=== PATIENT | female | born 1975 | race Caucasian/White ===

== ENCOUNTER 2016-09-02 12:11 | Inpatient (IN) | payer OTHER ==
[~2016-09-02] VITALS: Ht 152.4 cm; Wt 77.1 kg
[~2016-09-02 12:11] MED LIST: AUGMENTIN 875 M1 TAB PO; BIAXIN500 MG PO; NAPROSYN375 MG PO; PERCOCET 325 MG1 TA2 PO; PREDNISONE10 MG PO; PROAIR HFA0.09 MG/Ac INH; ROBITUSSIN W/CO10 ML PO; TAMIFLU 75MG75 MG PO; VICODIN5-300 PO
--- NOTE | 2016-09-02 12:18 | NUR ---
41 Y/O FEMALE C/O VOMITING SINCE LAST WEEK AND NOW EPIGASTRIC, RUQ AND BACK PAIN. DOCTOR TOLD HER IT COULD BE HER GALLBLADDER OR APPENDIX. ALSO HAD NEW INJECTION IN BACK (FOR PAIN) AND HASN'T BEEN FEELING WELL SINCE.
--- NOTE | 2016-09-02 12:28 | ED GI/GU/ABDOMINAL COMPLAINT ---
History of Present Illness General Chief Complaint: Nausea, Vomiting, Diarrhea Stated Complaint: BACK PAIN VOMITING Source: patient, family, old records Exam Limitations: no limitations Vital Signs & Intake/Output Vital Signs & Intake/Output Vital Signs Date Time Temp Pulse Resp B/P Pulse O2 O2 Flow FiO2 Ox Delivery Rate 09/02 1432 98.2 91 18 119/65 99 09/02 1215 95.8 132 18 118/89 99 Allergies Coded Allergies: NO KNOWN ALLERGIES (01/30/13) Reconcile Medications Alprazolam 0.5 MG TABLET 1 TAB PO BIDP PRN ANXIETY (Reported) Losartan Potassium 50 MG TABLET 1 TAB PO DAILY HEART (Reported) Oxycodone HCl 10 MG TABLET 1 TAB PO TIDPRN PRN PAIN (Reported) Triage Note: 41 Y/O FEMALE C/O VOMITING SINCE LAST WEEK AND NOW EPIGASTRIC, RUQ AND BACK PAIN. DOCTOR TOLD HER IT COULD BE HER GALLBLADDER OR APPENDIX. ALSO HAD NEW INJECTION IN BACK (FOR PAIN) AND HASN'T BEEN FEELING WELL SINCE. Triage Nurses Notes Reviewed? yes LMP (ages 10-50): unknown ? n Is pt currently ? No Onset: Last week Duration: week(s):, constant, continues in ED, getting worse Timing: recent history Quality/Severity: aching, sharpness, severe, vomiting Location: right lower quadrant, right upper quadrant Radiation: back Activities at Onset: none Prior Abdominal Problems: none Past Sexual History: Unobtainable at this time Modifying Factors: Worsens With: movement, palpation. Associated Symptoms: abdominal pain, diarrhea, loss of appetite, lower back pain , nausea/vomiting HPI: Patient suffers from low back pain and had steroid injections 5 days ago. 1-2 weeks prior to admission patient complains of right-sided abdominal pain described as waxing and waning severe radiating to her back associated with nausea vomiting frequent loose watery stools not improved with Percocet or Zofran. She denies fever chills chest pain cough shortness of breath headache dysuria rash bleeding. Past History Travel History Traveled to [place] past 21 day No Medical History Any Pertinent Medical History? 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 No Review of Systems Review of Systems Constitutional: Reports: see HPI, weakness. EENTM: Reports: no symptoms. Respiratory: Reports: no symptoms. Cardiovascular: Reports: no symptoms. GI: Reports: see HPI, abdominal pain, bloating, diarrhea, nausea, vomiting. Genitourinary: Reports: no symptoms. Musculoskeletal: Reports: see HPI, back pain. Skin: Reports: no symptoms. Neurological/Psychological: Reports: no symptoms. Hematologic/Endocrine: Reports: no symptoms. Immunologic/Allergic: Reports: no symptoms. All Other Systems: Reviewed and Negative Physical Exam Physical Exam General Appearance: well developed/nourished, alert, awake, anxious, severe distress Head: atraumatic, normal appearance Eyes: Bilateral: normal appearance, PERRL, EOMI, normal inspection. Ears, Nose, Throat, Mouth: hearing grossly normal, Dry mucous membranes Neck: normal inspection, supple, full range of motion, normal alignment Respiratory: normal breath sounds, chest non-tender, no respiratory distress, quiet respiration, lungs clear Cardiovascular: regular rate/rhythm, normal peripheral pulses, norml femoral pulses equa Peripheral Pulses: 4+ carotid (R), 4+ carotid (L) Gastrointestinal: abnormal bowel sounds, distention, guarding, rebound, tenderness Back: normal inspection, normal range of motion Extremities: normal range of motion, no ligament instability Neurologic/Psych: no motor/sensory deficits, awake, alert, oriented x 3, normal gait, normal mood/affect, 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 No Severe Sepsis Present: No Septic Shock Present: No Progress Differential Diagnosis: biliary colic, cholecystitis, gastritis, pancreatitis Plan of Care: Orders Procedure Date/time Status Nothing by Mouth 09/02 D Active Patient Data 09/02 1448 Active OXYGEN SETUP (GEN) 09/02 1446 Active Saline Lock 09/02 1446 Active Admit to inpatient 09/02 1446 Active Vital Signs 09/02 1446 Active Activity/Ambulation 09/02 1446 Active Code Status 09/02 1446 Active Intake & Output 09/02 1313 Active LIPASE 09/02 1227 Complete HUMAN BETA HCG SCREEN 09/02 1227 Complete COMPREHENSIVE METABOLIC PANEL 09/02 1227 Complete CBC WITHOUT DIFFERENTIAL 09/02 1227 Complete Laboratory Tests 09/02/16 1310: Anion Gap 13, Estimated GFR > 60, BUN/Creatinine Ratio 23.3, Glucose 100 H, Calcium 10.1, Total Bilirubin 0.8, AST 50 H, ALT 78 H, Alkaline Phosphatase 129 H, Total Protein 7.7, Albumin 4.7, Globulin 3.0, Albumin/Globulin Ratio 1.6 , Lipase 79, Total Beta HCG NEGATIVE, CBC w Diff NO MAN DIFF REQ, RBC 4.96, MCV 92.6, MCH 31.0, RDW 13.2, MPV 7.0 L, Gran % 85.9 H, Lymphocytes % 9.4 L, Monocytes % 4.5, Eosinophils % 0.2, Basophils % 0 L, Absolute Granulocytes 8.4 H, Absolute Lymphocytes 0.9 L, Absolute Monocytes 0.4, Absolute Eosinophils 0, Absolute Basophils 0, PUBS MCHC 33.4 Diagnostic Imaging: Viewed by Me: CT Scan. Discussed w/RAD: CT Scan. Radiology Impression: Multiple fluid-filled loops of small and large bowel throughout the abdomen with minimal mucosal hyperemia. No significant circumferential mucosal thickening. This finding is nonspecific but could reflect an infectious or inflammatory enterocolitis given patient symptomatology. Nonvisualization of the appendix. No acute inflammatory changes within the right lower quadrant of the abdomen. Initial ED EKG: none Departure Departure Time of Disposition: 1517 Disposition: STILL A PATIENT Condition: Stable Clinical Impression Primary Impression: Enterocolitis Referrals: SORAYA VERAS MD (PCP/Family) Departure Forms: Customer Survey General Discharge Information Admission Note Spoke With: KAREN VEGA,FRANCISCO JAVIER Documentation of Exam: Documentation of any treatments & extenuating circumstances including Concerns Regarding Discharge (functional status, medication knowledge or non-compliance, living conditions, etc.) that warrant an admission rather than observation: Nothing by mouth IV fluids IV antiemetic IV analgesia serial lab exam medication adjustment GI evaluation continuing care discharge planning.
[2016-09-02] MEDS ORDERED: ALPRAZOLAM0.5 M4 PO (12:42)
[2016-09-02] MEDS ORDERED: OXYCODONE HCL10 M2 PO (12:42)
[2016-09-02] MEDS ORDERED: LOSARTAN POTASS50 M1 PO (12:42)
--- NOTE | 2016-09-02 13:09 | NUR ---
EVALUATED BY DR. MOORE, VOMITING CLEAR EMESIS. IV STARTED, LABS DRAWN AND SENT (1 SST, 1 YORK, 1 PURPLE).
--- NOTE | 2016-09-02 13:14 | NUR ---
MEDICATED FOR PAIN AND NAUSEA.
[2016-09-02 13:19] LABS: ABSOLUTE BASOPHIL COUNT 0 /CUMM (0.0-0.2); ABSOLUTE EOSINOPHIL COUNT 0 /CUMM (0.0-0.7); ABSOLUTE GRANULOCYTE CT 8.4 /CUMM (1.4-6.5); ABSOLUTE LYMPH COUNT 0.9 /CUMM (1.2-3.4); ABSOLUTE MONOCYTE COUNT 0.4 /CUMM (0.10-0.60); BASOPHIL % 0 % (0.0-2.0); EOSINOPHIL % 0.2 % (0-5); HEMATOCRIT 45.9 % (37-47); MEAN CORPUSCULAR HGB CONC 33.4 G/DL (33.0-37.0); MEAN CORPUSCULAR VOLUME 92.6 FL (81.0-99.0); PLATELET COUNT 322 /CUMM (130-400); RBC DISTRIBUTION WIDTH 13.2 % (11.5-14.5); RED BLOOD CELL CT 4.96 /CUMM (4.20-5.40); WHITE BLOOD CELL COUNT 9.8 /CUMM (4.8-10.8)
[2016-09-02 13:44] LABS: GRANULOCYTE % 85.9 % (42.2-75.2)
--- NOTE | 2016-09-02 13:56 | NUR ---
C/O RUQ ABDOMINAL PAIN 04/06. MEDICATED FOR PAIN WITH DILAUDID [address] SCAN.
--- NOTE | 2016-09-02 14:10 | NUR ---
RETURNED FROM CT SCAN.
--- NOTE | 2016-09-02 14:32 | CT SCAN REPORT ---
EXAMINATION: CT ABDOMEN AND PELVIS WITH CONTRAST CLINICAL INFORMATION: Right-sided abdominal pain. Nausea, vomiting and guarding. Positive rebound tenderness. COMPARISON: CT abdomen and pelvis without contrast 04/09/2012. Abdominal ultrasound 01/30/2013. TECHNIQUE: Multidetector volumetric imaging was performed of the abdomen and pelvis before and after the IV administration of 95 mL of Optiray 320 intravenous contrast. Sagittal and coronal reformatted images were obtained on the technologist's workstation. DLP: 436 mGy-cm FINDINGS: LUNG BASES: Minimal lingular atelectasis. The visualized lung bases are otherwise unremarkable. LIVER, GALLBLADDER, AND BILIARY TREE: The liver is normal in size, shape, and attenuation. No focal hepatic lesion or biliary ductal dilatation is present. The gallbladder is unremarkable without evidence of radiopaque gallstones, gallbladder wall thickening, or obvious pericholecystic inflammatory changes. PANCREAS: Unremarkable. SPLEEN: Unremarkable. ADRENAL GLANDS: Unremarkable. KIDNEYS AND URETERS: The kidneys are normal in size and enhance homogeneously, without focal lesions. There is no appreciable nephrolithiasis or hydroureteronephrosis of either kidney or renal collecting system. No ureteral stones are identified. BLADDER: Unremarkable. GASTROINTESTINAL TRACT: Normal anatomic orientation of the stomach relative to the duodenum. Normal caliber of abdominal and pelvic bowel loops, without evidence of obstruction or ileus. Multiple fluid-filled loops of small bowel throughout the abdomen with fluid also identified within the right hemicolon. There is also minimal mucosal hyperemia of loops of small and large bowel, without significant circumferential mucosal thickening. This finding is nonspecific but could reflect an infectious or inflammatory enterocolitis. Nonvisualization of the appendix. No acute inflammatory changes within the right lower quadrant of the abdomen. No organizing intra-abdominal fluid collections or free intraperitoneal air. ABDOMINAL WALL: No significant hernia is appreciated. LYMPH NODES: No significant abdominal or pelvic adenopathy. VASCULAR: Patent abdominal vasculature. Normal course and caliber of the abdominal aorta and its branching vessels, without aneurysmal dilatation. PELVIC VISCERA: An intrauterine device is present within the endometrial cavity. OSSEOUS STRUCTURES: No acute osseous abnormality. Mild multilevel degenerative changes of the imaged lower thoracic spine, notably at T11-T12. No destructive osseous lesions. No acute vertebral compression deformities of the imaged thoracolumbar spine. IMPRESSION: Multiple fluid-filled loops of small and large bowel throughout the abdomen with minimal mucosal hyperemia. No significant circumferential mucosal thickening. This finding is nonspecific but could reflect an infectious or inflammatory enterocolitis given patient symptomatology. Nonvisualization of the appendix. No acute inflammatory changes within the right lower quadrant of the abdomen.
--- NOTE | 2016-09-02 16:24 | History & Physical ---
CARA VEGA,ANAMIKA 09/02/16 1624: General Information and HPI MD Statement: I have seen and personally examined TIMOTHY MATIAS and documented this H&P. The patient is a 41 year old F who presented with a patient stated chief complaint of [nausea, vomiting, diarrhea]. Source of Information: patient, EMS Exam Limitations: no limitations History of Present Illness: Patient is a 41 YO F with PMH significant for hypertension (recently diagnosed), endometriosis, fibroids, ovarian cysts, herniated disc, sinusitis (on Augmentin recently), right-sided colonic inflammation of unclear etiology, underwent colonoscopy with biopsy in the past ([address] Slater senior agricultural assistant Farida), anxiety, osteoarthritis, carpal tunnel syndrome. She came to the emergency room today with nausea, vomiting, diarrhea and abdominal pain for the past 2 weeks. Her symptoms appear to be progressively worsened, conditions of the lumbosacral, Bile Nonbloody. Stool consistency is greenish yellow without any blood. Last week she had a fever of 101. She recently reports receiving injections on her back, for herniated disc after which apparently her symptoms got worse. She also noticed abdominal distention, went to her PCP who sent her to ER saying that she could have it the gallbladder/appendicular disease. She reports similar episode in the past 4 years ago, found to have right surgical inflammation during the laparoscopic procedure for her endometriosis. Subsequently underwent colonoscopy with biopsy, reports it is secondary to inflammation/irritation but never followed up. She also reports ulcer disease in college, remained asymptomatic for several years. It appears never tested for H. pylori in the past. Physicians - PCP - Dr. balta Stevens, [place], GI Dr. Bryon Iqbal, gynecology Dr. Vasquez Osteoarthritis - Dr. Hernandez. Allergies/Medications Allergies: Coded Allergies: NO KNOWN ALLERGIES (01/30/13) Compliance With Home Meds: GOOD Past History Travel History Traveled to [place] past 21 day No Medical History Neurological: NONE EENT: NONE Cardiovascular: hypertension Respiratory: asthma Gastrointestinal: GERD, right colon inflammation - nonspecific Hepatic: NONE Renal: NONE Musculoskeletal: disk herniation Psychiatric: NONE Endocrine: NONE Blood Disorders: NONE Cancer(s): NONE MRI TECHNOLOGIST/Reproductive: endometriosis, fibroids, ovarian cysts Surgical History Surgical History: 2 C-sections Past Family/Social History Family History Relations & Conditions if any grand father\, . FH: colon cancer FATHER FH: heart disease MOTHER FH: diabetes mellitus FH: heart disease, Onset: Unknown. Relation not specified for: FH: breast cancer Psychosocial History Past Psychosocial History Unobtainable at this time Where do you live? Home Who Do You Live With? parent Services at Home: None Smoking Status: Never Smoked ETOH Use: denies use Illicit Drug Use: denies illicit drug use Sexual History Past Sexual History Unobtainable at this time Review of Systems Review of Systems Constitutional: Reports: see HPI. EENTM: Reports: see HPI. Comments ROS negative except the above. Exam & Diagnostic Data Last 24 Hrs of Vital Signs/I&O Vital Signs Date Time Temp Pulse Resp B/P Pulse O2 O2 Flow FiO2 Ox Delivery Rate 09/02 1432 98.2 91 18 119/65 99 09/02 1215 95.8 132 18 118/89 99 Intake & Output 09/02 1600 09/02 0800 09/02 0000 Intake Total 1000 Output Total Balance 1000 Intake, IV 1000 Patient 77.111 kg Weight Physical Exam General Appearance Alert, Oriented X3, Cooperative Skin No Rashes, No Breakdown HEENT Atraumatic, PERRLA Neck Supple, No JVD Cardiovascular Normal S1, Normal S2, No Murmurs Lungs Clear to Auscultation, Normal Air Movement Abdomen No Masses, epigastric tenderness - specifically, mild overall tenderness., CVA tenderness left side. Neurological Normal Speech, Strength at 5/5 X4 Ext, Normal Tone, Sensation Intact Extremities No Clubbing, No Cyanosis, No Edema Vascular Normal Pulses, Pulses Symmetrical Body Front and Back (Adult) 1) abdominal pain 2) back pain Last 24 Hrs of Labs/[place]: Laboratory Tests 09/02/16 1310: Anion Gap 13, Estimated GFR > 60, BUN/Creatinine Ratio 23.3, Glucose 100 H, Calcium 10.1, Total Bilirubin 0.8, AST 50 H, ALT 78 H, Alkaline Phosphatase 129 H, Total Protein 7.7, Albumin 4.7, Globulin 3.0, Albumin/Globulin Ratio 1.6 , Lipase 79, Total Beta HCG NEGATIVE, CBC w Diff NO MAN DIFF REQ, RBC 4.96, MCV 92.6, MCH 31.0, RDW 13.2, MPV 7.0 L, Gran % 85.9 H, Lymphocytes % 9.4 L, Monocytes % 4.5, Eosinophils % 0.2, Basophils % 0 L, Absolute Granulocytes 8.4 H, Absolute Lymphocytes 0.9 L, Absolute Monocytes 0.4, Absolute Eosinophils 0, Absolute Basophils 0, PUBS MCHC 33.4 Microbiology 09/02 1704 STOOL: Cryptosporidium Antigen - COLB 09/02 1704 STOOL: Giardia Antigen ([place]) - COLB 09/02 1704 STOOL: Vibrio Culture - COLB 09/02 1704 STOOL: Yersinia Culture - COLB 09/02 1557 STOOL: Clostridium difficile Toxin A & B - COLB Assessment/Plan Assessment: Patient is a 41 YO F came to the emergency room today with nausea, vomiting, diarrhea and abdominal pain for the past 2 weeks. Her symptoms appear to be progressively worsened, contents of vomitus, Bile Nonbloody & diarrhea is greenish yellow without any blood in it. She had similar episode 4yr ago. ER course vs Afebrile, HR 132, RR 18, on room air Significant labs AST/ALT - 50/98, ALP 129 CT abdomen and pelvis IMPRESSION: Multiple fluid-filled loops of small and large bowel throughout the abdomen with minimal mucosal hyperemia. No significant circumferential mucosal thickening. This finding is nonspecific but could reflect an infectious or inflammatory enterocolitis given patient symptomatology. Plan Admitted to general medicine floor enterocolitis Possible etiologies: * Infectious vs inflammatory - major diffrential * Similar episode in the past so IBD should be considered as a first differental * Norovirus/Rotavirus are considered majorly although other culprits include astrovirus, coronavirus are other culprits * Recently patient took augmentin for sinusitis - Pencillin induced segmental hemorrhagic colitis is a rare consideration as a differential (right colon effected) * common bacteria involved - salmonella, shigella, campylobacter, yersinia Management * IV fluids with IV morphine for pain * NPO for now - bowel rest * Stool cultures - ova, parasites, bacteria, white cells * ESR & CRP to rule out systemic inflammatory reactants * Records from previous GI doctor () regarding colonoscopy and biopsy * GI consult in am * reevaluate tomorrow for advancing diet depending on clinical conditon Low back Pain * Recently received IV injections locally (possibly steroids) * Oxycodone for now, taking percocet at home Hypertension * Recently diagnosed * will continue her home medications losartan 50mg Anxiety * her home medication Xanax is continued DVT Prophylaxis * SC lovenox Code Status * Full Code As Ranked By This Provider Problem List: 1. Enterocolitis 2. Sinusitis Core Measures/Miscellaneous Acute Coronary Syndrome ACS Diagnosis: No Cerebrovascular Accident CVA/TIA Diagnosis: No Congestive Heart Failure CHF Diagnosis: No Venous Thromboembolism VTE Risk Factors: Immobility, paresis No Mech VTE prophylaxis d/t: No contraindications No VTE Pharm Prophylaxis d/t: No contraindications VTE Diagnosis: No VTE Type: NONE VTE Confirmed by (Test): NONE Severe Sepsis Severe Sepsis Present: No Septic Shock Septic Shock Present: No Miscellaneous Documentation Attending Case Discussed With: IZA VEGA,KATIE Primary Care Physician: LATASHA VERAS MD Patient sees these Specialists Level of Patient Care: General Medicine KAREN VEGA,[facility] 09/02/16 1645: Attending MD Review Statement Attending Statement Attending MD Statement: examined this patient, discuss w/resident/PA/SPEECH AND LANGUAGE CLINICIAN, agreed w/resident/PA/SPEECH AND LANGUAGE CLINICIAN, discussed with family, reviewed EMR data (avail), discussed with nursing Attending Assessment/Plan: Patient seen and examined. Plan of care discussed with the medical team and the patient. Available lab work and radiology test reports were reviewed. Patient has been never admitted to this hospital before. In summary this is a 41-year- old female with past history of back pain with recent steroid injection in her back presents with 3 weeks history of nausea vomiting diarrhea and abdominal cramping. She has not been able to keep food or fluids down. She had couple of episodes of mild fever 100.1 at home. No blood in stool or hematemesis. Please see resident note for past medical history, family history social history and home medications. Vital Signs Date Time Temp Pulse Resp B/P Pulse O2 O2 Flow FiO2 Ox Delivery Rate 09/02 1432 98.2 91 18 119/65 99 09/02 1215 95.8 132 18 118/89 99 Intake & Output 09/02 1600 09/02 0800 09/02 0000 Intake Total 1000 Output Total Balance 1000 Intake, IV 1000 Patient 170 lb Weight Exam: General: Patient awake alert oriented with moderate distress due to abdominal pain and nausea CVS: S1 plus S2 without any murmur or gallops Chest: Few scattered crepitation without any wheeze. There is no respiratory distress. Abdomen: Soft and tender diffusely with mild distention, bowel sound present, no guarding or rebound TUBING MILL OPERATOR: Awake alert oriented without any focal neuro deficit and follows command appropriately Extremities: No edema; no clubbing or cyanosis noted tender, bowel sound present , no guarding or rebound TUBING MILL OPERATOR: Awake alert oriented without any focal neuro deficit and follows command appropriately Extremities: No edema; no clubbing or cyanosis noted Laboratory Tests 09/02 1310 Chemistry Sodium (137 - 145 mmol/L) 140 Potassium (3.5 - 5.1 mmol/L) 3.6 Chloride (98 - 107 mmol/L) 98 Carbon Dioxide (22 - 30 mmol/L) 29 Anion Gap (5 - 16) 13 BUN (7 - 17 mg/dL) 14 Creatinine (0.5 - 1.0 mg/dL) 0.6 Estimated GFR (>60 ml/min) > 60 BUN/Creatinine Ratio (7 - 25 %) 23.3 Glucose (65 - 99 mg/dL) 100 H Calcium (8.4 - 10.2 mg/dL) 10.1 Total Bilirubin (0.2 - 1.3 mg/dL) 0.8 AST (14 - 36 U/L) 50 H ALT (9 - 52 U/L) 78 H Alkaline Phosphatase (<127 U/L) 129 H Total Protein (6.3 - 8.2 g/dL) 7.7 Albumin (3.5 - 5.0 g/dL) 4.7 Globulin (1.9 - 4.2 gm/dL) 3.0 Albumin/Globulin Ratio (1.1 - 2.2 %) 1.6 Lipase (23 - 300 U/L) 79 Total Beta HCG (NEGATIVE) NEGATIVE Hematology CBC w Diff NO MAN DIFF REQ WBC (4.8 - 10.8 /CUMM) 9.8 RBC (4.20 - 5.40 /CUMM) 4.96 Hgb (12.0 - 16.0 G/DL) 15.3 Hct (37 - 47 %) 45.9 MCV (81.0 - 99.0 FL) 92.6 MCH (27.0 - 31.0 PG) 31.0 RDW (11.5 - 14.5 %) 13.2 Plt Count (130 - 400 /CUMM) 322 MPV (7.4 - 10.4 FL) 7.0 L Gran % (42.2 - 75.2 %) 85.9 H Lymphocytes % (20.5 - 51.1 %) 9.4 L Monocytes % (1.7 - 9.3 %) 4.5 Eosinophils % (0 - 5 %) 0.2 Basophils % (0.0 - 2.0 %) 0 L Absolute Granulocytes (1.4 - 6.5 /CUMM) 8.4 H Absolute Lymphocytes (1.2 - 3.4 /CUMM) 0.9 L Absolute Monocytes (0.10 - 0.60 /CUMM) 0.4 Absolute Eosinophils (0.0 - 0.7 /CUMM) 0 Absolute Basophils (0.0 - 0.2 /CUMM) 0 PUBS MCHC (33.0 - 37.0 G/DL) 33.4 Microbiology Date/Time Procedure - Status Source Growth 09/02 1557 Clostridium difficile Toxin A & B - COLB STOOL CT abdomen and pelvis Multiple fluid-filled loops of small and large bowel throughout the abdomen with minimal mucosal hyperemia. No significant circumferential mucosal thickening. This finding is nonspecific but could reflect an infectious or inflammatory enterocolitis given patient symptomatology. Nonvisualization of the appendix. No acute inflammatory changes within the right lower quadrant of the abdomen. Assessment * Acute recent right is likely viral * Rule out underlying inflammatory bowel disease- patient apparently had workup done 4 years ago at another hospital. Patient does not remember the biopsy report results. * Dehydration * Persistent nausea and vomiting * Chronic back pain * History of endometriosis Plan * IV fluid * IV morphine for pain management * No antibiotic at this point * Continue alprazolam and losartan per home dose * Obtain old records from prior endoscopies and biopsies * The patient's symptoms do not resolve with conservative measures she may need GI evaluation. STEFANIE VEGA,[facility] 09/02/16 0223: General Information and HPI Allergies/Medications Home Med list Acetaminophen (Tylenol Extra Strength) 500 MG TABLET 1 TAB PO TID MILD PAIN 1- 3 Alprazolam 0.5 MG TABLET 1 TAB PO BIDP PRN ANXIETY (Reported) Famotidine 20 MG TABLET 20 MG PO BID stomach ulcer Losartan Potassium 50 MG TABLET 1 TAB PO DAILY HEART (Reported) Metoclopramide HCl (Reglan) 10 MG TABLET 1 TAB PO TID nausea 30 minutes before meals and bedtime Metronidazole (Flagyl) 250 MG TABLET 500 MG PO Q8 C DIFF Ondansetron (Zofran Odt) 4 MG TAB.RAPDIS 1 TAB SL TID nausea Oxycodone HCl 10 MG TABLET 1 TAB PO TIDPRN PRN PAIN (Reported) Oxycodone HCl 5 MG TABLET 1 TAB PO Q6P PRN PAIN 7-10 Resident Review Statement Resident Statement: examined this patient, discussed with credit intern, agreed with credit intern, discussed with family, reviewed EMR data (avail), discussed with nursing Other Findings: 41-year-old old female with past medical history of recently diagnosed hypertension, sinusitis was on Augmentin prior to admission, right-sided colonic inflammation of unclear etiology which was found during colonoscopy done about 4 years ago presents to the ED with complaints of vomiting and diarrhea for the last 2 weeks which has recently worsened over the last 1 week lasting for about 10 episodes of each daily. Patient has been feeling nauseous unable to eat or drink. Has blood in the stools or in the vomitus. Had temperature 2 in the past 2 weeks with a MAXIMUM TEMPERATURE of 101.8 which was on Wednesday. Had similar episode in the past about 4 years ago had a colonoscopy done 4 years ago which showed some evidence of inflammation, but patient not able to remember pathology results. She failed to follow-up after that. Had a recent steroid shots about 8 shots in the back for chronic back pain. Patient reports that her back pain was severe 3-4 days postprocedure for which she was taking Percocets about 1-2 tablets daily. Please refer to H&P for vitals and labs. On examination patient alert awake oriented, in mild to moderate distress HEENT: Mucous dry Cardiovascular S1, S2 regular Respiratory: Bilateral breath sounds equal Abdomen: Diffuse tenderness present all over the belly, pulses present Extremity: No pedal edema Assessment and plan Acute gastroenteritis: Etiology unclear could be secondary to possible inflammatory bowel disease given patient's previous colonoscopy showing some inflammation (results unavailable at this time) versus infectious possible C. difficile colitis (given recent antibiotic use) versus viral again unlikely as this going on for more than 2 weeks. Patient has been afebrile since admission with normal white count. We will send stool cultures, or parasites and C. difficile. Will obtain colonoscopy results done in the past. Will monitor off antibiotics. And continue pain medications with IV morphine and IV fluids. Will consider GI evaluation in a.m. patient has no symptomatic relief. 2. Chronic back pain: Pain management as mentioned above. 3. Hypertension: Blood pressure remained stable. We will restart her blood pressure medications after watching the blood pressure overnight. Next 4. We'll continue her alprazolam 0.5 mg twice a day when necessary for anxiety at home dose. Full code status DVT prophylaxis with Lovenox Regular diet
--- NOTE | 2016-09-02 16:25 | NUR ---
PT REQUESTING TO HAVE PAIN MEDS AND INFORMED THAT WE DONT HAVE ANY ORDERES IN HOUSE STAFF PAIGED FOR CALL BACK AND NO RESPONSE YET
--- NOTE | 2016-09-02 16:44 | Admission Certification ---
Admission Certification Certification Statement - As attending physician, I certify that at the time of - admission, based on clinical presentation, severity of - symptoms, need for further diagnostic testing and - therapeutic interventions, and risk of adverse outcomes - without in-hospital treatment, in my clinical assessment, - this patient requires an acute hospital stay for a minimum - of two nights or longer. I have also considered psychsocial - factors such as support system, advanced age, financial - issues, cognitive issues, and failed out-patient treatments, - past re-admission history, safety of patient, and lack of - compliance as applicable. Specific rationale supporting this admission is: Gastroenteritis and persistent nausea vomiting; inability to eat or drink and diffuse abdominal pain
--- NOTE | 2016-09-02 16:45 | NUR ---
PT MEDICATED ORDERED
--- NOTE | 2016-09-02 19:50 | NUR ---
BED ASSIGNED 210-2 ROOM NEEDS TO BE CLEANED WHEN READY FLOOR WILL CALL FOR REPORT
--- NOTE | 2016-09-02 21:36 | NUR ---
REPORT GIVEN TO EDGARDO HOPSONCOMMERCIAL MANAGEMENT ACCOUNTANT CALLED
[2016-09-02 22:32] VITALS: BP 116/82
--- NOTE | 2016-09-03 00:57 | NUR ---
NURSE NOTE ( LATE ENTRY) PT CAME TO FLOOR AROUND 2200 VIA TRANSPORT FROM ED. REPORT RECEIVED FROM TREASURE. PT IS AAOX3, RA. NAUSEOUS AND IN PAIN. MEDICATED ACCORDINGLY. PT ORIENTED TO ROOM, CALL LORENZO IN REACH, BED LOWEST. IVF @125. EMESIS BASIN GIVEN.
--- NOTE | 2016-09-03 06:47 | PN- Housestaff ---
CARA VEGA,ANAMIKA 09/03/16 0647: Subjective Follow-up For: Enterocolitis Subjective: I saw and examined the patient today morning She is doing much worse in terms of pain, no bowel movement yet. Awaiting for bowel movement for getting stool tests. Still nauseous without any vomiting. No overnight fevers, chills, shortness of breath. Review of Systems Constitutional: Reports: see HPI. Gastrointestinal: Reports: abdominal pain, nausea. Denies: vomiting. Comments: ROS negative except the above. Objective Last 24 Hrs of Vital Signs/I&O Vital Signs Date Time Temp Pulse Resp B/P Pulse O2 O2 Flow FiO2 Ox Delivery Rate 09/02 2232 98.5 71 22 116/82 98 Room Air 09/02 2148 78 14 118/60 09/02 1432 98.2 91 18 119/65 99 09/02 1215 95.8 132 18 118/89 99 Intake & Output 09/03 0800 09/03 0000 09/02 1600 Intake Total 2743 734 2493 Output Total Balance 9078 397 7684 Intake, IV 7067 060 0907 Intake, Oral 0 40 Patient 77.111 kg 77.111 kg Weight Physical Exam General Appearance: Alert, Oriented X3, Cooperative, Mild Distress Skin: No Rashes, No Breakdown HEENT: Atraumatic, PERRLA Neck: Supple Cardiovascular: Regular Rate, Normal S1, Normal S2 Lungs: Clear to Auscultation, Normal Air Movement Abdomen: diffuse tenderness specifically in the umbilical and right lower quadrant Neurological: Normal Tone, Sensation Intact, Cranial Nerves 3-12 NL Extremities: No Clubbing, No Cyanosis, No Edema Vascular: Normal Pulses, Pulses Symmetrical Current Medications: Current Medications Sig/Polina Start time Last Medication Dose Route Stop Time Status Admin Acetaminophen 650 MG Q6P PRN 09/02 171 AC PO Alprazolam 0.5 MG BID PRN 09/02 1715 AC 09/03 PO 09/09 1714 0015 Enoxaparin Sodium 40 MG DAILY 09/02 1704 AC SC Hydromorphone HCl 2 MG ONCE ONE 09/02 1400 DC 09/02 IV 09/02 1401 1355 Hydromorphone HCl 0 .STK-MED ONE 09/02 1355 DC .ROUTE Hydromorphone HCl 0 .STK-MED ONE 09/02 1256 DC .ROUTE Hydromorphone HCl 1 MG ONCE ONE 09/02 1230 DC /08 IV 09/02 1231 1312 Metoclopramide HCl 10 MG ONCE ONE 09/02 2345 DC 09/03 IV 09/02 2346 0015 Metoclopramide HCl 0 .STK-MED ONE 09/02 1322 DC .ROUTE Metoclopramide HCl 10 MG ONCE ONE 09/02 1315 DC / IV 09/02 1316 1330 Morphine Sulfate 0 .STK-MED ONE 09/02 1944 DC .ROUTE Morphine Sulfate 2 MG Q4P PRN 09/02 1715 AC 09/02 IV 2218 Morphine Sulfate 2 MG Q3P PRN 09/02 1645 DC / IV 1644 Morphine Sulfate 0 .STK-MED ONE 09/02 1640 DC .ROUTE Ondansetron HCl 4 MG Q4-6 PRN PRN 09/02 2215 AC 09/02 IV 2212 Ondansetron HCl 0 .STK-MED ONE 09/02 1943 DC .ROUTE Ondansetron HCl 4 MG Q6P PRN 09/02 1645 DC 09/02 IV 1644 Ondansetron HCl 0 .STK-MED ONE 09/02 1640 DC .ROUTE Ondansetron HCl 0 .STK-MED ONE 09/02 1256 DC .ROUTE Ondansetron HCl 4 MG ONCE ONE 09/02 1230 DC 09/02 IV 09/02 1231 1312 Oxycodone HCl 5 MG Q6H PRN 09/02 1715 AC 09/03 PO 0015 Sodium Chloride 1,000 ML .Q8H 09/02 1700 AC 09/03 IV 0016 Sodium Chloride 1,000 ML BOLUS ONE 09/02 1230 DC /08 IV 09/02 1329 1312 Last 24 Hrs of Lab/[place] Results Last 24 Hrs of Labs/Mics: Laboratory Tests 09/03/16 1156: ESR Westergren Pending 09/03/16 0655: Total Bilirubin 0.6, Direct Bilirubin 0.4, AST 26, ALT 48, Alkaline Phosphatase 94, C-Reactive Prot, Quant 2.5 H, C-React Prot High Sens > 15.0 H, Total Protein 6.3, Albumin 3.7, CBC w Diff NO MAN DIFF REQ, RBC 4.20, MCV 94.3, MCH 32.1 H, RDW 13.3, MPV 7.2 L, Gran % 50.5, Lymphocytes % 38.6, Monocytes % 9.8 H, Eosinophils % 0.8, Basophils % 0.3, Absolute Granulocytes 2.0, Absolute Lymphocytes 1.5, Absolute Monocytes 0.4, Absolute Eosinophils 0, Absolute Basophils 0, PUBS MCHC 34.1 09/02/16 1310: Anion Gap 13, Estimated GFR > 60, BUN/Creatinine Ratio 23.3, Glucose 100 H, Calcium 10.1, Total Bilirubin 0.8, AST 50 H, ALT 78 H, Alkaline Phosphatase 129 H, Total Protein 7.7, Albumin 4.7, Globulin 3.0, Albumin/Globulin Ratio 1.6 , Lipase 79, Total Beta HCG NEGATIVE, CBC w Diff NO MAN DIFF REQ, RBC 4.96, MCV 92.6, MCH 31.0, RDW 13.2, MPV 7.0 L, Gran % 85.9 H, Lymphocytes % 9.4 L, Monocytes % 4.5, Eosinophils % 0.2, Basophils % 0 L, Absolute Granulocytes 8.4 H, Absolute Lymphocytes 0.9 L, Absolute Monocytes 0.4, Absolute Eosinophils 0, Absolute Basophils 0, PUBS MCHC 33.4 Microbiology 09/02 170 STOOL: Cryptosporidium Antigen - COLB 09/02 170 STOOL: Giardia Antigen ([place]) - COLB 09/02 170 STOOL: Vibrio Culture - COLB 09/02 170 STOOL: Yersinia Culture - COLB 09/02 1557 STOOL: Clostridium difficile Toxin A & B - COLB Lines/Diet/Fluids Lines: peripheral lines Assessment/Plan Assessment: Patient is a 41 YO F came to the emergency room today with nausea, vomiting, diarrhea and abdominal pain for the past 2 weeks. Her symptoms appear to be progressively worsened, contents of vomitus, Bile Nonbloody & diarrhea is greenish yellow without any blood in it. She had similar episode 4yr ago. ER course vs Afebrile, HR 132, RR 18, on room air Significant labs AST/ALT - 50/98, ALP 129 CT abdomen and pelvis IMPRESSION: Multiple fluid-filled loops of small and large bowel throughout the abdomen with minimal mucosal hyperemia. No significant circumferential mucosal thickening. This finding is nonspecific but could reflect an infectious or inflammatory enterocolitis given patient symptomatology. Plan Admitted to general medicine floor enterocolitis Possible etiologies: * Infectious vs inflammatory & protein related enteropathies - major diffrential * Old records - show her colon is normal * Patient is still symptomatic, other gynecological causes are considered. Management * IV fluids with IV morphine for pain * Dicyclomine 10mg QID with scheduled doses of metoclopromide QID, ondansetrone TID IV for symptomatic relief * Clear liquids for now, NPO from 7AM for colonoscopy * Mag citrate given now with fleet enema twice in the morning. * Stool cultures are not sent as no BM so far - ova, parasites, bacteria, white cells * ESR & CRP are negative for inflammatory condition * GI consulted - proceeding with colonoscopy in am Low back Pain * Recently received IV injections locally (possibly steroids) * Oxycodone for now, taking percocet at home Hypertension * Recently diagnosed * will continue her home medications losartan 50mg Anxiety * her home medication Xanax is continued DVT Prophylaxis * SC lovenox Code Status * Full Code Problem List: 1. Sinusitis 2. Enterocolitis Pain Ratin Pain Location: abdomen Pain Goal: Pain 4 or less Pain Plan: oxycodone IV morphine Tomorrow's Labs & Rationales: cbc to monitor any signs of infection off antibiotics IZA VEGA,[facility] 09/03/16 1429: Attending MD Review Statement Attending Statement Attending MD Statement: examined this patient, discuss w/resident/PA/INTEGRITY ASSESSOR, agreed w/resident/PA/INTEGRITY ASSESSOR, reviewed EMR data (avail), discussed with nursing, discussed with case mgmt, reviewed images, amended to note Attending Assessment/Plan: Patient seen and examined, not doing well. C/O sig abd pain, still feels nauseous and has no appetite. Vital Signs Date Time Temp Pulse Resp B/P Pulse O2 O2 Flow FiO2 Ox Delivery Rate 09/03 1421 98.3 72 18 112/70 98 Room Air 09/03 0719 97.4 73 18 114/74 99 Room Air 09/02 2232 98.5 71 22 116/82 98 Room Air 09/02 2148 78 14 118/60 09/02 1432 98.2 91 18 119/65 99 on exam; aox3, nad. heent; mucous membranes moist. cv; s1,s2, rrr. resp; clear abd; soft, tender generalized, bs+ ext; no edema. Laboratory Tests 09/03 09/03 1156 0655 Chemistry Total Bilirubin (0.2 - 1.3 mg/dL) 0.6 Direct Bilirubin (< 0.4 mg/dL) 0.4 AST (14 - 36 U/L) 26 ALT (9 - 52 U/L) 48 Alkaline Phosphatase (<127 U/L) 94 C-Reactive Prot, Quant (<1.0 mg/dL) 2.5 H C-React Prot High Sens (1.0 - 3.0 mg/L) > 15.0 H Total Protein (6.3 - 8.2 g/dL) 6.3 Albumin (3.5 - 5.0 g/dL) 3.7 Hematology CBC w Diff NO MAN DIFF REQ WBC (4.8 - 10.8 /CUMM) 4.0 L RBC (4.20 - 5.40 /CUMM) 4.20 Hgb (12.0 - 16.0 G/DL) 13.5 Hct (37 - 47 %) 39.6 MCV (81.0 - 99.0 FL) 94.3 MCH (27.0 - 31.0 PG) 32.1 H RDW (11.5 - 14.5 %) 13.3 Plt Count (130 - 400 /CUMM) 266 MPV (7.4 - 10.4 FL) 7.2 L Gran % (42.2 - 75.2 %) 50.5 Lymphocytes % (20.5 - 51.1 %) 38.6 Monocytes % (1.7 - 9.3 %) 9.8 H Eosinophils % (0 - 5 %) 0.8 Basophils % (0.0 - 2.0 %) 0.3 Absolute Granulocytes (1.4 - 6.5 /CUMM) 2.0 Absolute Lymphocytes (1.2 - 3.4 /CUMM) 1.5 Absolute Monocytes (0.10 - 0.60 /CUMM) 0.4 Absolute Eosinophils (0.0 - 0.7 /CUMM) 0 Absolute Basophils (0.0 - 0.2 /CUMM) 0 PUBS MCHC (33.0 - 37.0 G/DL) 34.1 ESR Westergren (0 - 20 MM) 15 A/P; 41 y/o F with pmh sig for hypertension (recently diagnosed), endometriosis, fibroids, ovarian cysts, herniated disc, sinusitis (on Augmentin recently), right-sided colonic inflammation of unclear etiology reported by the patient according to colonoscopy 4 years ago although results of biopsy and not available who is admitted with 2-3 weeks duration of abdominal pain, nausea vomiting and diarrhea. CT abdomen and pelvis findings are consistent with possible inflammatory or infectious enterocolitis. At this point patient is nothing by mouth and getting IV fluids. She does not have a fever or leukocytosis therefore no antibiotics were started. Stool studies have been ordered. GI consult will be obtained. Continue symptomatic management for abdominal pain as well as nausea vomiting. DVT Px; Lovenox. DVT Px; Lovenox.
[2016-09-03 07:19] VITALS: BP 114/74
[2016-09-03 08:14] LABS: ABSOLUTE BASOPHIL COUNT 0 /CUMM (0.0-0.2); ABSOLUTE EOSINOPHIL COUNT 0 /CUMM (0.0-0.7); ABSOLUTE LYMPH COUNT 1.5 /CUMM (1.2-3.4); BASOPHIL % 0.3 % (0.0-2.0); EOSINOPHIL % 0.8 % (0-5)
[2016-09-03 08:52] LABS: ABSOLUTE MONOCYTE COUNT 0.4 /CUMM (0.10-0.60); GRANULOCYTE % 50.5 % (42.2-75.2); MEAN CORPUSCULAR HGB 32.1 PG (27.0-31.0); MEAN CORPUSCULAR HGB CONC 34.1 G/DL (33.0-37.0); MEAN CORPUSCULAR VOLUME 94.3 FL (81.0-99.0); MEAN PLATELET VOLUME 7.2 FL (7.4-10.4); PLATELET COUNT 266 /CUMM (130-400); RBC DISTRIBUTION WIDTH 13.3 % (11.5-14.5)
[2016-09-03 08:58] LABS: HEMATOCRIT 39.6 % (37-47)
[2016-09-03 14:21] VITALS: BP 112/70
--- NOTE | 2016-09-03 15:42 | Cons- Gastroenterology ---
General Information and HPI Consulting Request Date of Consult: 09/03/16 (MD RUEL/GASTROENTEROLOGY) Requested By: KATIE COUCH MD Reason for Consult: Diarrhea, abdominal pain, nausea Source of Information: patient History of Present Illness: 41-year-old female with lifelong "diarrhea" which she describes as inability to have a bowel movement for several days, followed by a single loose/watery movement. She has no history of GI bleeding. In addition, she was diagnosed with ulcers (details unknown) when she was in college. After the of her second child approximately 5 years ago, she was being evaluated for endometriosis. During a laparoscopy, apparently she was found to have an abnormal bowel, validated by a general surgeon, and was told to see a referral manager for colonoscopy. Apparently the colonoscopy was unrevealing, but again she cannot recall. She has had "diarrhea" is described above since that time. She has occasional abdominal pain. She believes that she has been ignoring her symptoms and has not followed up with gastroenterology because the complexities of her son's medical issues. The patient denies anemia, liver disease. 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 In addition she has had multiple loose bowel movements per day, nonbloody, as well as abdominal pain (generalized, diffuse). She took some Imodium, and has not had a bowel movement since admission. She believes she had a low-grade fever. There was no antecedent travel, raw food ingestion, pet exposure; her son developed a self-limited GI illness in the midst of her course. Family history is positive for IBD in 2 aunts (mother's sisters in [place]). Her mother also has GI issues. Her son sees a pediatric referral manager. No GI malignancy. Social history: No tobacco, no alcohol abuse, no drug use. Allergies/Medications Allergies: Coded Allergies: NO KNOWN ALLERGIES (01/30/13) Home Med List: Alprazolam 0.5 MG TABLET 1 TAB PO BIDP PRN ANXIETY (Reported) Losartan Potassium 50 MG TABLET 1 TAB PO DAILY HEART (Reported) Oxycodone HCl 10 MG TABLET 1 TAB PO TIDPRN PRN PAIN (Reported) Current Medications: Current Medications Sig/Polina Start time Last Medication Dose Route Stop Time Status Admin Acetaminophen 650 MG Q6P PRN 09/02 1715 AC PO Alprazolam 0.5 MG BID PRN 09/02 1715 AC 09/03 PO 09/09 1714 0015 Enoxaparin Sodium 40 MG DAILY 09/02 1704 AC 09/03 SC 0856 Metoclopramide HCl 10 MG Q6P PRN 09/03 0845 AC 09/03 IV 1448 Metoclopramide HCl 10 MG .STK-MED ONE 09/03 0009 DC IM 09/03 0010 Metoclopramide HCl 10 MG ONCE ONE 09/02 2345 DC 09/03 IV 09/02 2346 0015 Morphine Sulfate 2 MG Q3P PRN 09/03 1015 AC 09/03 IV 1405 Morphine Sulfate 2 MG ONCE ONE 09/03 1000 DC 09/03 IV 09/03 1001 1012 Morphine Sulfate 0 .STK-MED ONE 09/02 1944 DC .ROUTE Morphine Sulfate 2 MG Q4P PRN 09/02 1715 DC 09/03 IV 0706 Morphine Sulfate 2 MG Q3P PRN 09/02 1645 DC 09/02 IV 1644 Morphine Sulfate 0 .STK-MED ONE 09/02 1640 DC .ROUTE Ondansetron HCl 4 MG .STK-MED ONE 09/03 0655 DC IM 09/03 0656 Ondansetron HCl 4 MG Q4-6 PRN PRN 09/02 2215 DC 09/03 IV 0705 Ondansetron HCl 0 .STK-MED ONE 09/02 1943 DC .ROUTE Ondansetron HCl 4 MG Q6P PRN 09/02 1645 DC 09/02 IV 1644 Ondansetron HCl 0 .STK-MED ONE 09/02 1640 DC .ROUTE Oxycodone HCl 5 MG Q6H PRN 09/02 1715 AC 09/03 PO 1444 Promethazine HCl 12.5 MG ONCE ONE 09/03 0745 DC IM 09/03 0746 Sodium Chloride 1,000 ML .Q8H 09/02 1700 AC 09/03 IV 0016 Past History Travel History Traveled to [place] past 21 day No Medical History Neurological: NONE EENT: NONE Cardiovascular: hypertension Respiratory: asthma Gastrointestinal: GERD, right colon inflammation - nonspecific Hepatic: NONE Renal: NONE Musculoskeletal: disk herniation Psychiatric: NONE Endocrine: NONE Blood Disorders: NONE Cancer(s): NONE 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 FH: colon cancer FATHER FH: heart disease MOTHER FH: diabetes mellitus FH: heart disease, Onset: Unknown. Relation not specified for: FH: breast cancer Psychosocial History Where Do You Live? Home Who Do You Live With? parent Services at Home: None Smoking Status: Never Smoked ETOH Use: denies use Illicit Drug Use: denies illicit drug use Review of Systems Review of Systems Constitutional: Denies: chills, fever, malaise, weakness. EENTM: Denies: icterus, epistaxis. Cardiovascular: Reports: edema. Denies: chest pain, syncope. Respiratory: Denies: cough, short of breath. GI: Reports: see HPI. Genitourinary: Denies: dysuria, hematuria. Musculoskeletal: Reports: back pain, neck pain. Skin: Denies: jaundice, lesions. Neurological/Psychological: Denies: cognitive dysfunction, confusion. Hematologic/Endocrine: Denies: bruising, bleeding. Exam & Diagnostic Data Vital Signs and I&O Vital Signs Date Time Temp Pulse Resp B/P Pulse O2 O2 Flow FiO2 Ox Delivery Rate 09/03 1421 98.3 72 18 112/70 98 Room Air 09/03 0719 97.4 73 18 114/74 99 Room Air 09/02 2232 98.5 71 22 116/82 98 Room Air 09/02 2148 78 14 118/60 Intake & Output 09/03 1600 09/03 0400 09/02 1600 09/02 0400 09/01 1600 09/01 0400 Intake Total 4350 923 4823 Output Total Balance 6576 938 4805 Intake, IV 8506 718 9865 Intake, Oral 0 40 Patient 170 lb 170 lb Weight Physical Exam: Well-developed well-nourished female, no apparent distress. Alert and oriented with normal cognition. Skin normal without lesion, jaundice, rash. Shoddy right cervical adenopathy. Sclera anicteric. No oropharyngeal lesion. No thyromegaly. Heart regular rhythm without murmur. Lungs clear bilaterally. Abdomen soft with hyperactive bowel sounds, diffuse tenderness to percussion and mild palpation, no appreciable mass or organomegaly. Extremities without clubbing, cyanosis or edema. Pulses are intact. Results Pertinent Lab Results: Laboratory Tests 09/03 09/03 1156 0655 Chemistry Total Bilirubin (0.2 - 1.3 mg/dL) 0.6 Direct Bilirubin (< 0.4 mg/dL) 0.4 AST (14 - 36 U/L) 26 ALT (9 - 52 U/L) 48 Alkaline Phosphatase (<127 U/L) 94 C-Reactive Prot, Quant (<1.0 mg/dL) 2.5 H C-React Prot High Sens (1.0 - 3.0 mg/L) > 15.0 H Total Protein (6.3 - 8.2 g/dL) 6.3 Albumin (3.5 - 5.0 g/dL) 3.7 Hematology CBC w Diff NO MAN DIFF REQ WBC (4.8 - 10.8 /CUMM) 4.0 L RBC (4.20 - 5.40 /CUMM) 4.20 Hgb (12.0 - 16.0 G/DL) 13.5 Hct (37 - 47 %) 39.6 MCV (81.0 - 99.0 FL) 94.3 MCH (27.0 - 31.0 PG) 32.1 H RDW (11.5 - 14.5 %) 13.3 Plt Count (130 - 400 /CUMM) 266 MPV (7.4 - 10.4 FL) 7.2 L Gran % (42.2 - 75.2 %) 50.5 Lymphocytes % (20.5 - 51.1 %) 38.6 Monocytes % (1.7 - 9.3 %) 9.8 H Eosinophils % (0 - 5 %) 0.8 Basophils % (0.0 - 2.0 %) 0.3 Absolute Granulocytes (1.4 - 6.5 /CUMM) 2.0 Absolute Lymphocytes (1.2 - 3.4 /CUMM) 1.5 Absolute Monocytes (0.10 - 0.60 /CUMM) 0.4 Absolute Eosinophils (0.0 - 0.7 /CUMM) 0 Absolute Basophils (0.0 - 0.2 /CUMM) 0 PUBS MCHC (33.0 - 37.0 G/DL) 34.1 ESR Westergren (0 - 20 MM) 15 08 1310 Chemistry Sodium (137 - 145 mmol/L) 140 Potassium (3.5 - 5.1 mmol/L) 3.6 Chloride (98 - 107 mmol/L) 98 Carbon Dioxide (22 - 30 mmol/L) 29 Anion Gap (5 - 16) 13 BUN (7 - 17 mg/dL) 14 Creatinine (0.5 - 1.0 mg/dL) 0.6 Estimated GFR (>60 ml/min) > 60 BUN/Creatinine Ratio (7 - 25 %) 23.3 Glucose (65 - 99 mg/dL) 100 H Calcium (8.4 - 10.2 mg/dL) 10.1 Total Bilirubin (0.2 - 1.3 mg/dL) 0.8 AST (14 - 36 U/L) 50 H ALT (9 - 52 U/L) 78 H Alkaline Phosphatase (<127 U/L) 129 H Total Protein (6.3 - 8.2 g/dL) 7.7 Albumin (3.5 - 5.0 g/dL) 4.7 Globulin (1.9 - 4.2 gm/dL) 3.0 Albumin/Globulin Ratio (1.1 - 2.2 %) 1.6 Lipase (23 - 300 U/L) 79 Total Beta HCG (NEGATIVE) NEGATIVE Hematology CBC w Diff NO MAN DIFF REQ WBC (4.8 - 10.8 /CUMM) 9.8 RBC (4.20 - 5.40 /CUMM) 4.96 Hgb (12.0 - 16.0 G/DL) 15.3 Hct (37 - 47 %) 45.9 MCV (81.0 - 99.0 FL) 92.6 MCH (27.0 - 31.0 PG) 31.0 RDW (11.5 - 14.5 %) 13.2 Plt Count (130 - 400 /CUMM) 322 MPV (7.4 - 10.4 FL) 7.0 L Gran % (42.2 - 75.2 %) 85.9 H Lymphocytes % (20.5 - 51.1 %) 9.4 L Monocytes % (1.7 - 9.3 %) 4.5 Eosinophils % (0 - 5 %) 0.2 Basophils % (0.0 - 2.0 %) 0 L Absolute Granulocytes (1.4 - 6.5 /CUMM) 8.4 H Absolute Lymphocytes (1.2 - 3.4 /CUMM) 0.9 L Absolute Monocytes (0.10 - 0.60 /CUMM) 0.4 Absolute Eosinophils (0.0 - 0.7 /CUMM) 0 Absolute Basophils (0.0 - 0.2 /CUMM) 0 PUBS MCHC (33.0 - 37.0 G/DL) 33.4 Imaging/Other Studies: CT scan of the abdomen and pelvis: IMPRESSION: Multiple fluid-filled loops of small and large bowel throughout the abdomen with minimal mucosal hyperemia. No significant circumferential mucosal thickening. This finding is nonspecific but could reflect an infectious or inflammatory enterocolitis given patient symptomatology. Nonvisualization of the appendix. No acute inflammatory changes within the right lower quadrant of the abdomen. Assessment/Plan Assessment/Recommendations: Patient presents with acute becoming chronic diarrhea accompanied by abdominal pain, transient minor transaminitis, nausea and vomiting. This is superimposed on a history of what appears to be constipation alternating with diarrhea. In addition she has possible GERD, dysphagia, remote ulcer disease, and according to her, endometriosis, ovarian cysts and a finding of an abnormal bowel at laparoscopy approximate 5 years ago. Rule out underlying IBD and/or IBS. The differential diagnosis includes other enteropathies, component of SAP HANA DEVELOPER disease. Recommendations * Clear liquid diet * Anticholinergic therapy such as dicyclomine 10 mg 4 times a day, or 4 times a day * Ondansetron 4 mg IV 3 times a day, not prn. * Metoclopramide 10 mg IV 4 times a day (before meals and at bedtime); not prn * EGD and colonoscopy tomorrow. Please give the patient one bottle of magnesium citrate early this evening, and 2 fleets enemas at 7 AM. Make nothing by mouth after 7 AM. * Obtain previous records from GI (Dr. Dimas Escobar), gynecology ([facility]) * Consider gynecology consultation * Check C-reactive protein, sedimentation rate * Stool culture, C. difficile toxin, Giardia antigen, cryptosporidium, vibrio, Yersinia Copies To: RITO VEGA,SORAYA Magana Consult Acknowledgment - Thank you for your consult request.
[2016-09-03 21:57] VITALS: BP 122/80
[2016-09-04 06:44] VITALS: BP 112/64
--- NOTE | 2016-09-04 07:08 | PN- Housestaff ---
CARA VEGA,ANAMIKA 09/04/16 0706: Subjective Follow-up For: Enterocolitis Subjective: I saw and examined the patient today morning She reports having nausea through out the night, one episode of vomiting and 4 episodes of diarrhea, loose and watery. She still complains significnat diffuse abdominal pain, 10/10 without any fever, radiating to the back. No shortness of breath, chest pain. Able to walk around. Took some apple juice yesterday. Gynecological history heavy periods once every 15days with daily spotting. She had Mirena IUD in place. No recent infections. Significant pain with periods. 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 Review of Systems Constitutional: Reports: see HPI, malaise, weakness. Gastrointestinal: Reports: abdominal pain, diarrhea, nausea, vomiting. Comments: ROS negative except the above. Objective Last 24 Hrs of Vital Signs/I&O Vital Signs Date Time Temp Pulse Resp B/P Pulse O2 O2 Flow FiO2 Ox Delivery Rate 09/04 0644 98.5 64 18 112/64 100 Room Air 09/03 2157 97.9 87 18 122/80 93 Room Air 09/03 1421 98.3 72 18 112/70 98 Room Air 09/03 0719 97.4 73 18 114/74 99 Room Air Intake & Output 09/04 0800 09/04 0000 09/03 1600 Intake Total 675 870 Output Total Balance 675 870 Intake, IV 375 750 Intake, Oral 300 120 Physical Exam General Appearance: Alert, Oriented X3, Cooperative Skin: No Rashes, No Breakdown HEENT: Atraumatic, PERRLA, EOMI Neck: Supple Cardiovascular: Normal S1, Normal S2, No Murmurs Lungs: Clear to Auscultation, Normal Air Movement Abdomen: Soft, diffusely tenderness more in left upper quadrant today, hyperactive bowel sounds Neurological: Normal Speech, Strength at 5/5 X4 Ext, Normal Tone, Sensation Intact Extremities: No Clubbing, No Cyanosis, No Edema Current Medications: Current Medications Sig/Polina Start time Last Medication Dose Route Stop Time Status Admin Acetaminophen 650 MG Q6P PRN 09/02 1714 AC PO Alprazolam 0.5 MG BID PRN 09/02 171 AC 09/03 PO 09/09 171 0015 Dicyclomine HCl 10 MG 4 TIMES/DAY 09/03 1800 AC 09/04 PO 0107 Enoxaparin Sodium 40 MG DAILY 09/02 1704 AC 09/03 SC 0856 Magnesium Citrate 300 ML ONE ONE 09/03 1630 DC 09/03 PO 09/03 1631 2016 Metoclopramide HCl 10 MG 4 TIMES/DAY NPO 09/03 1800 AC 09/03 IV 2017 Metoclopramide HCl 10 MG Q6P PRN 09/03 0845 DC 09/03 IV 1448 Morphine Sulfate 2 MG Q3P PRN 09/03 1015 AC 09/04 IV 0539 Morphine Sulfate 2 MG ONCE ONE 09/03 1000 DC 09/03 IV 09/03 1001 1012 Morphine Sulfate 2 MG Q4P PRN 09/02 1715 DC 09/03 IV 0706 Ondansetron HCl 4 MG TID 09/03 1620 AC 09/03 IV 2149 Ondansetron HCl 4 MG Q4-6 PRN PRN 09/02 2215 DC 09/03 IV 0705 Oxycodone HCl 5 MG Q6H PRN 09/02 1715 AC 09/03 PO 2148 Promethazine HCl 12.5 MG ONCE ONE 09/03 0745 DC IM 09/03 0746 Sodium Chloride 1,000 ML .Q8H 09/02 1700 AC 09/04 IV 0109 Sodium Phosphate 1 UNIT ONCE ONE 09/04 0700 DC LA 09/04 0701 Sodium Phosphate 1 UNIT ONCE ONE 09/04 0600 DC 09/04 LA 09/04 0601 0539 Trimethobenzamide HCl 200 MG ONCE ONE 09/04 0545 DC 09/04 IM 09/04 0546 0554 Last 24 Hrs of Lab/[place] Results Last 24 Hrs of Labs/Mics: Laboratory Tests 09/04/16 0620: CBC w Diff Pending, WBC Pending, RBC Pending, Hgb Pending, Hct Pending, MCV Pending, MCH Pending, RDW Pending, Plt Count Pending, MPV Pending, PUBS MCHC Pending 09/03/16 1156: ESR Westergren 15 Microbiology 09/04 0542 STOOL: Clostridium difficile Toxin A & B - ORD Lines/Diet/Fluids Lines: peripheral lines Assessment/Plan Assessment: Patient is a 41 YO F came to the emergency room today with nausea, vomiting, diarrhea and abdominal pain for the past 2 weeks. Her symptoms appear to be progressively worsened, contents of vomitus, Bile Nonbloody & diarrhea is greenish yellow without any blood in it. She had similar episode 4yr ago. ER course vs Afebrile, HR 132, RR 18, on room air Significant labs AST/ALT - 50/98, ALP 129 CT abdomen and pelvis IMPRESSION: Multiple fluid-filled loops of small and large bowel throughout the abdomen with minimal mucosal hyperemia. No significant circumferential mucosal thickening. This finding is nonspecific but could reflect an infectious or inflammatory enterocolitis given patient symptomatology. Plan Admitted to general medicine floor enterocolitis Possible etiologies: * Infectious vs inflammatory & protein related enteropathies - major diffrential * Old records - show her colon is normal * Patient is still symptomatic, other gynecological causes are considered. Management * IV fluids with IV morphine for pain * Dicyclomine 10mg QID with scheduled doses of metoclopromide QID, ondansetrone TID IV for symptomatic relief * Stool cultures shows C.diff. * ESR & CRP are negative for inflammatory condition * Underwent EGD and colonscopy today suggestive of antral ulcer and no signs of colitis/ileitis so far. * Clear liquids for now, Started on IV PPI for now - will advance diet as she tolerated. Low back Pain * Recently received IV injections locally (possibly steroids) * Oxycodone for now, taking percocet at home Hypertension * Recently diagnosed * will continue her home medications losartan 50mg Anxiety * her home medication Xanax is continued DVT Prophylaxis * SC lovenox Code Status * Full Code Problem List: 1. Sinusitis 2. Enterocolitis Pain Ratin Pain Location: abdomen Pain Goal: Pain 4 or less Pain Plan: dicyclomine oxycodone morphine Tomorrow's Labs & Rationales: cbc to monitor white count in the setting of C.diff bep in the setting of vomiting to monitor josette COUCH MD,KATIE 09/04/16 1208: Attending MD Review Statement Attending Statement Attending MD Statement: examined this patient, discuss w/resident/PA/BOOKING SUPERVISOR, agreed w/resident/PA/BOOKING SUPERVISOR, reviewed EMR data (avail), discussed with nursing, discussed with case mgmt, reviewed images, amended to note Attending Assessment/Plan: Patient seen and examined, not feeling any better. Still complains of a lot of abdominal pain. She was started on clears yesterday but after drinking a juice, her pain worsened. Vital Signs Date Time Temp Pulse Resp B/P Pulse O2 O2 Flow FiO2 Ox Delivery Rate 09/04 0644 98.5 64 18 112/64 100 Room Air 09/03 2157 97.9 87 18 122/80 93 Room Air 09/03 1421 98.3 72 18 112/70 98 Room Air on exam; aox3, nad. cv; s1,s2, rrr resp; clear abd; soft, bs+, tender throughout. ext; no edema Laboratory Tests 09/04 09/04 0910 0620 Chemistry Sodium (137 - 145 mmol/L) 143 Potassium (3.5 - 5.1 mmol/L) 3.9 Chloride (98 - 107 mmol/L) 104 Carbon Dioxide (22 - 30 mmol/L) 31 H Anion Gap (5 - 16) 9 BUN (7 - 17 mg/dL) 8 Creatinine (0.5 - 1.0 mg/dL) 0.5 Estimated GFR (>60 ml/min) > 60 BUN/Creatinine Ratio (7 - 25 %) 16.0 Hematology CBC w Diff NO MAN DIFF REQ WBC (4.8 - 10.8 /CUMM) 4.2 L RBC (4.20 - 5.40 /CUMM) 3.99 L Hgb (12.0 - 16.0 G/DL) 12.5 Hct (37 - 47 %) 37.0 MCV (81.0 - 99.0 FL) 92.8 MCH (27.0 - 31.0 PG) 31.4 H RDW (11.5 - 14.5 %) 13.2 Plt Count (130 - 400 /CUMM) 286 MPV (7.4 - 10.4 FL) 6.9 L Gran % (42.2 - 75.2 %) 49.8 Lymphocytes % (20.5 - 51.1 %) 40.0 Monocytes % (1.7 - 9.3 %) 8.8 Eosinophils % (0 - 5 %) 1.1 Basophils % (0.0 - 2.0 %) 0.3 Absolute Granulocytes (1.4 - 6.5 /CUMM) 2.1 Absolute Lymphocytes (1.2 - 3.4 /CUMM) 1.7 Absolute Monocytes (0.10 - 0.60 /CUMM) 0.4 Absolute Eosinophils (0.0 - 0.7 /CUMM) 0 Absolute Basophils (0.0 - 0.2 /CUMM) 0 PUBS MCHC (33.0 - 37.0 G/DL) 33.8 A/P; 41 y/o F with pmh sig for hypertension (recently diagnosed), endometriosis, fibroids, ovarian cysts, herniated disc, sinusitis (on Augmentin recently), right-sided colonic inflammation of unclear etiology reported by the patient according to colonoscopy 4 years ago although results of biopsy and not available who is admitted with 2-3 weeks duration of abdominal pain, nausea vomiting and diarrhea. CT abdomen and pelvis findings are consistent with possible inflammatory or infectious enterocolitis. Patient has been seen by GI, appreciate their input. Patient was started on metoclopramide, Zofran as well as dicyclomine as recommended by Dr. Garner. Patient scheduled for endoscopy colonoscopy today as IBD or IBS is high on the differential. Stool sample has been sent to look for infectious etiology. We'll follow-up on the results of his stool studies as well as panendoscopy. Continue gentle IV hydration. DVT px: Lovenox.
[2016-09-04 07:45] LABS: ABSOLUTE BASOPHIL COUNT 0 /CUMM (0.0-0.2); ABSOLUTE EOSINOPHIL COUNT 0 /CUMM (0.0-0.7); ABSOLUTE GRANULOCYTE CT 2.1 /CUMM (1.4-6.5); ABSOLUTE LYMPH COUNT 1.7 /CUMM (1.2-3.4); ABSOLUTE MONOCYTE COUNT 0.4 /CUMM (0.10-0.60); BASOPHIL % 0.3 % (0.0-2.0); EOSINOPHIL % 1.1 % (0-5); GRANULOCYTE % 49.8 % (42.2-75.2); MEAN CORPUSCULAR HGB 31.4 PG (27.0-31.0); MEAN CORPUSCULAR HGB CONC 33.8 G/DL (33.0-37.0); MEAN CORPUSCULAR VOLUME 92.8 FL (81.0-99.0); MEAN PLATELET VOLUME 6.9 FL (7.4-10.4); PLATELET COUNT 286 /CUMM (130-400); RBC DISTRIBUTION WIDTH 13.2 % (11.5-14.5); RED BLOOD CELL CT 3.99 /CUMM (4.20-5.40); WHITE BLOOD CELL COUNT 4.2 /CUMM (4.8-10.8)
--- NOTE | 2016-09-04 13:06 | NUR ---
NURSING NOTE: PATIENT TO GI VIA STRETCHER AT THIS TIME.
--- NOTE | 2016-09-04 13:54 | NUR ---
NURSING NOTE: SPOKE TO MICROBIOLOGY AT 1345; CONFIRMED POSITIVE CDIFF RESULTS.
--- NOTE | 2016-09-04 15:00 | Proc Note Endoscopy ---
Endoscopy Procedure Procedure Date: 09/04/16 Procedure Type: EGD w/biopsy (preceding colonoscopy) Legal Billing Specialist: Tomas Garner M.D. ASA Classification: III Indications: Pain, nausea, vomiting, and diarrhea Remote history of peptic ulcer disease Instrument: diagnostic gastroscope Meds Received: OTONIEL Patient's Tolerance: good Complications: none Extent Reached: second part of duodenum Procedure: The patient signed informed consent for EGD and colonoscopy, and was medicated. Hurricane pharyngeal spray was administered. Pulse oximetry, blood pressure and cardiac monitoring were performed continuously throughout the procedure. The Olympus high-definition gastroscope was inserted into the mouth and advanced to the duodenum. Retroflexion was performed within the stomach to examine the cardia. Careful examination was performed. Findings: The esophagus had normal caliber and contour. The mucosa was intact throughout. There were no varices. The GE junction at 40 cm was normal. There was no hiatal hernia. The stomach had normal distention and active antral peristalsis. The cardia was normal. The mucosa and folds of the fundus and body were normal. 2 biopsies were obtained. The incisura was normal. Within the antrum were areas of erythema, erosions. 2 biopsies were obtained. On the greater curvature of the mid antrum was a 1 cm linear ulcer with normal edges. 3 biopsies were obtained from this area. The pyloric channel was normal. The duodenal bulb was normal. The mucosa and folds of the duodenal sweep were normal, and 4 biopsies were obtained. Impression: * Antral ulcer * Gastritis * No gross enteropathy; biopsies obtained Recommendations: * PPI therapy * Await pathology CC: SORAYA VERAS MD
--- NOTE | 2016-09-04 15:04 | Proc Note Colonoscopy ---
Colonoscopy Procedure Procedure Date: 09/04/16 Procedure Type: colonoscopy w/biopsy (following EGD) Frame Maker: Tomas Garner M.D. ASA Classification: III Indications: Pain, diarrhea Questionable history of colitis Instrument (Colonoscope): single channel Meds Received: MAC Patient's Tolerance: good Complications: none Extent Reached: terminal ileum Prep: fair Procedure: Following the initial EGD, the patient was placed in the Ortiz position, and medicated. Examination of the rectum was normal. There were no anal or perianal lesions. The Olympus high-definition variable stiffness colonoscope was inserted through the anus and advanced to the terminal ileum, deeply intubated. Retroflexion was performed in order to examine the rectum. Careful examination was performed. There was adequate withdrawal time. Findings: The rectum was normal, without proctitis. The mucosa, folds and vasculature of the sigmoid to the cecum were normal. There was no gross colitis. There were no pseudomembranes. The ileum was inspected for a distance of approximately 20 cm, the mucosa was normal throughout. Biopsies were obtained from sigmoid/left colon, transverse colon, right colon, and terminal ileum. Impression: * No gross colitis/ileitis; biopsies obtained Recommendations: * Await pathology * Await results of stool samples as previously recommended * Anticholinergic medication as needed. * Attempt to advance diet. CC: SORAYA VERAS MD
[2016-09-04] MEDS ORDERED: FLAGYL250 M1 PO (15:10)
--- NOTE | 2016-09-04 15:11 | Patient Discharge Instructions ---
Discharge Instructions General Discharge Information You were seen/treated for: C.diff colitis You had these procedures: Colonoscopy and EGD Special Instructions: Please follow up with your PCP in a week Please follow up with in a week Diet Continue normal diet: Yes Activity Full Activity/No Limits: Yes Acute Coronary Syndrome Inclusion Criteria At DC or during hospital stay patient has or had the following: ACS DIAGNOSIS No Discharge Core Measures Meds if any: Prescribed or Continued at Discharge Meds if any: NOT Prescribed or Continued at Discharge Congestive Heart Failure Inclusion Criteria At DC or during hospital stay patient has or had the following: CHF DIAGNOSIS No Discharge Core Measures Meds if any: Prescribed or Continued at Discharge Meds if any: NOT Prescribed or Continued at Discharge Cerebrovascular accident Inclusion Criteria At DC or during hospital stay patient has or had the following: CVA/TIA Diagnosis No Discharge Core Measures Meds if any: Prescribed or Continued at Discharge Meds if any: NOT Prescribed or Continued at Discharge Venous thromboembolism Inclusion Criteria VTE Diagnosis No VTE Type NONE VTE Confirmed by (Test) NONE Discharge Core Measures - Per Current guidelines, there needs to be overlap - treatment for the first 5 days of Warfarin therapy. - If discharged on Warfarin prior to 5 days of - overlap therapy, the patient will need to be - assessed for post discharge needs including - *Post discharge parental anticoagulation - *Warfarin and/or parental anticoagulation education - *Follow up date to check INR post discharge At least 5 days overlap therapy as Inpatient No Meds if any: Prescribed or Continued at Discharge Note: Overlap Therapy is Warfarin and Anticoagulant Meds if any: NOT Prescribed or Continued at Discharge
--- NOTE | 2016-09-04 15:47 | NUR ---
NURSING NOTE: PT RETURNED FROM GI VIA STRETCHER; SETTLED INTO ROOM. CALL LORENZO IN PLACE, BED LOW/LOCKED. PT REPORTS 10/10 PAIN AND NAUSEA. PRN MEDICATION GIVEN PER MD ORDERS; PT OTHERWISE STABLE. WILL CONTINUE TO MONITOR.
[2016-09-04 18:05] VITALS: BP 128/74
[2016-09-04 22:55] VITALS: BP 118/80
--- NOTE | 2016-09-05 05:44 | PN- Housestaff ---
See Addendum Subjective Follow-up For: C. diff colitis Complaints: abdominal pain -03/07 Subjective: She is walking around in the room. She c/o abdominal pain with movement despite IV morphine. No fever/chills, nausea/vomiting. She had 3 loose bowel movements in 24 hrs (2 yesterday, 1 this morning). She wants to try full liquid diet today morning. Review of Systems Constitutional: Denies: chills, fever, weakness. EENTM: Reports: no symptoms. Cardiovascular: Reports: no symptoms. Respiratory: Denies: cough, short of breath, sputum production. Gastrointestinal: Reports: abdominal pain, diarrhea. Denies: constipation, nausea, vomiting. Genitourinary: Reports: no symptoms. Musculoskeletal: Reports: no symptoms. Skin: Reports: no symptoms. Neurological/Psychological: Reports: no symptoms. Hematologic/Endocrine: Reports: no symptoms. Immunologic/Allergic: Reports: no symptoms. Objective Last 24 Hrs of Vital Signs/I&O Vital Signs Date Time Temp Pulse Resp B/P Pulse O2 O2 Flow FiO2 Ox Delivery Rate 09/04 2255 97.8 74 20 118/80 97 Room Air 09/04 1805 99.3 73 22 128/74 95 Room Air 09/04 0644 98.5 64 18 112/64 100 Room Air Intake & Output 09/05 0800 09/05 0000 09/04 1600 Intake Total 1100 Output Total Balance 1100 Intake, IV 1100 Number 1 Bowel Movements Patient 170 lb Weight Physical Exam General Appearance: Alert, Oriented X3, Cooperative, Mild Distress Skin: No Significant Lesion HEENT: Atraumatic, PERRLA, EOMI, Mucous Membr. moist/pink Neck: Supple, No JVD, No LAD Lymphatic: Cervical nl Cardiovascular: Regular Rate, Normal S1, Normal S2, No Murmurs Lungs: Clear to Auscultation, Normal Air Movement Abdomen: tenderness all 4 quadrants Neurological: Normal Gait, Normal Speech, Strength at 5/5 X4 Ext, Normal Tone, Sensation Intact, Cranial Nerves 3-12 NL Extremities: No Edema, Normal Pulses Vascular: Normal Pulses, Pulses Symmetrical Current Medications: Current Medications Sig/Polina Start time Last Medication Dose Route Stop Time Status Admin Acetaminophen 650 MG Q6P PRN 09/02 171 AC PO Alprazolam 0.5 MG BID PRN 09/02 171 AC 09/03 PO 09/09 1714 0015 Benzocaine 0 .STK-MED ONE 09/04 1502 DC TOP 09/04 1503 Chlorhexidine 1 GM .STK-MED ONE 09/04 1502 DC Gluconate TOP 09/04 1503 Dicyclomine HCl 10 MG 4 TIMES/DAY 09/03 1800 AC 09/04 PO 2204 Enoxaparin Sodium 40 MG DAILY 09/02 1704 AC 09/04 SC 0916 Lidocaine 2 ORION .STK-MED ONE 09/04 1502 DC TOP 09/04 1503 Metoclopramide HCl 10 MG 4 TIMES/DAY 09/04 2200 AC 09/04 IV 2204 Metoclopramide HCl 10 MG 4 TIMES/DAY NPO 09/03 1800 DC 09/04 IV 1911 Metronidazole 500 MG Q8 09/04 1500 AC 09/05 PO 0629 Morphine Sulfate 3 MG Q3P PRN 09/05 0715 AC IV Morphine Sulfate 2 MG Q3P PRN 09/03 1015 DC 09/05 IV 0351 Ondansetron HCl 4 MG TID PRN 09/04 1922 AC 09/05 IV 0351 Ondansetron HCl 4 MG TID 09/03 1620 DC 09/04 IV 1638 Oxycodone HCl 5 MG Q4 PRN 09/05 0704 AC PO Oxycodone HCl 5 MG Q6H PRN 09/02 1715 DC 09/04 PO 1645 Pantoprazole Sodium 40 MG DAILY 09/04 1602 AC 09/04 IV 1638 Pantoprazole Sodium 40 MG DAILY 09/04 1514 DC IV Patient Medication 1 ED .STK-MED ONE 09/04 1404 DC Teaching ED 09/04 1405 Potassium Chloride 10 MEQ Q1H 09/04 0900 CAN IV 09/04 1001 Promethazine HCl 25 MG ONCE ONE 09/04 1115 DC 09/04 IV 09/04 1116 1154 Sodium Chloride 1,000 ML .Q8H 09/02 1700 AC 09/05 IV 0719 Last 24 Hrs of Lab/Kem Results Last 24 Hrs of Labs/Mics: Laboratory Tests 09/05/16 0632: Sodium Pending, Potassium Pending, Chloride Pending, Carbon Dioxide Pending, Anion Gap Pending, BUN Pending, Creatinine Pending, BUN/Creatinine Ratio Pending , CBC w Diff Pending, WBC Pending, RBC Pending, Hgb Pending, Hct Pending, MCV Pending, MCH Pending, RDW Pending, Plt Count Pending, MPV Pending, PUBS MCHC Pending 09/04/16 0910: Anion Gap 9, Estimated GFR > 60, BUN/Creatinine Ratio 16.0 Microbiology 09/04 845 STOOL: Cryptosporidium Antigen - RECD 09/04 845 STOOL: Giardia Antigen (KEM) - RECD 09/04 845 STOOL: Vibrio Culture - RECD 09/04 845 STOOL: Yersinia Culture - RECD 09/04 845 STOOL: Stool Culture - RECD 09/04 845 STOOL: Clostridium difficile Toxin A & B - COMP CLOSTRIDIUM DIFFICILE Lines/Diet/Fluids Fluids/Infusions: NS @ 125cc/hr Lines: peripheral lines Assessment/Plan Assessment: Patient is a 41 YO F pmh sig for hypertension (recently diagnosed), endometriosis, fibroids, ovarian cysts, herniated disc, sinusitis (on Augmentin recently), right-sided colonic inflammation of unclear etiology came to the emergency room with nausea, vomiting, diarrhea and abdominal pain for the past 2 weeks. Her symptoms appear to be progressively worsened, contents of vomitus, Bile Nonbloody & diarrhea is greenish yellow without any blood in it. She had similar episode 4yr ago. ER course vs Afebrile, HR 132, RR 18, on room air Significant labs AST/ALT - 50/98, ALP 129 CT abdomen and pelvis IMPRESSION: Multiple fluid-filled loops of small and large bowel throughout the abdomen with minimal mucosal hyperemia. No significant circumferential mucosal thickening. This finding is nonspecific but could reflect an infectious or inflammatory enterocolitis given patient symptomatology. Plan Admitted to general medicine floor 1. C.diff colitis * s/p EGD and colonscopy 09/04 suggestive of antral ulcer and no signs of colitis /ileitis so far. * Stool C.diff positive : mild disease (WBC < 15, albumin 3.7, Cr 0,5), continue po metronidazole 500mg q8 #day2 * continue IV PPI, zofran, reglan for symptom control, gentle IV hydration * ESR & CRP are negative * will advance diet to full liquid * IV morphine was increased to 3mg q3p for severe pain & po oxycodone 5mg q4p for moderate pain for abdominal pain/td. 2. Low back Pain * Recently received IV injections locally (possibly steroids) * Continue IV morphine/po oxycodone per pain pathway 3. Hypertension * Recently diagnosed * BP borderline, hold home medications losartan 50mg for now 4. Anxiety * continue home dose Xanax DVT Prophylaxis * SC lovenox Code Status * Full Code Problem List: 1. C. difficile colitis Pain Ratin Pain Location: abdominal pain Pain Goal: Pain 4 or less Pain Plan: IV morphine po oxycodone Tomorrow's Labs & Rationales: CBC: C.diff colitis DVT/Prophylaxis: pharmacological Discharge Plan Stable for Discharge? No
[2016-09-05 06:42] VITALS: BP 118/66
[2016-09-05 09:02] LABS: ABSOLUTE BASOPHIL COUNT 0 /CUMM (0.0-0.2); ABSOLUTE EOSINOPHIL COUNT 0 /CUMM (0.0-0.7); ABSOLUTE GRANULOCYTE CT 2.5 /CUMM (1.4-6.5); ABSOLUTE LYMPH COUNT 1.5 /CUMM (1.2-3.4); ABSOLUTE MONOCYTE COUNT 0.3 /CUMM (0.10-0.60); BASOPHIL % 0.5 % (0.0-2.0); EOSINOPHIL % 0.4 % (0-5); GRANULOCYTE % 56.9 % (42.2-75.2); HEMATOCRIT 34.2 % (37-47); MEAN CORPUSCULAR HGB 31.3 PG (27.0-31.0); MEAN CORPUSCULAR HGB CONC 33.5 G/DL (33.0-37.0); MEAN CORPUSCULAR VOLUME 93.4 FL (81.0-99.0); MEAN PLATELET VOLUME 7.1 FL (7.4-10.4); PLATELET COUNT 266 /CUMM (130-400); RBC DISTRIBUTION WIDTH 12.8 % (11.5-14.5); RED BLOOD CELL CT 3.66 /CUMM (4.20-5.40); WHITE BLOOD CELL COUNT 4.4 /CUMM (4.8-10.8)
[2016-09-05 14:54] VITALS: BP 122/60
--- NOTE | 2016-09-05 18:13 | PN- Gastroenterology ---
Assessment/Plan Assessment/Recommendations: (*Patient seen & examined. Chart reviewed in GI coverag for Dr. Zacarias Garner) 41 y/o female, HTN/asthma/hx GERD/HD/endometriosis/fibroids/ovarian cysts/? mild anxiety, admitted 09/02/2016 with acute on chronic diarrhea, abdominal cramps, transient minor transaminitis, n & v, remote PUD. 09/02/2016: serum HCG- negative, CMP- TBil 0.8, alk phos 129, AST 50, ALT 78, nl lipase 79,nl lytes, BUN/Cr 14/0.6, GFR > 60, WBC 9.8, H/H 15.3/45.9, nl MCV, PLT 322 09/03/2016: ESR 15, + CRP 2.5 09/04/2016: + C. difficile; stool C&S- neg, Shiga toxin- neg, Vibrio- neg, Yersinia- neg, Giardia Ag- neg, Crypto Ag- neg 09/05/2016: WBC 4.4, H/H 11.5/34.2, nl MCV, PLT 266, nl SMA7 09/02/2016: CT ABD & PELVIS W IV CONTRAST- Multiple fluid-filled loops of small and large bowel throughout the abdomen with minimal mucosal hyperemia. No significant circumferential mucosal thickening. This finding is nonspecific but could reflect an infectious or inflammatory enterocolitis given patient symptomatology. Nonvisualization of the appendix. No acute inflammatory changes within the right lower quadrant of the abdomen. Patent abdominal vasculature. IUD is present within the endometrial cavity. Multilevel DJD. 09/03/2016: EKG- NSR @ 64, normal axis, normal intervals, NSST inferiorly. 09/04/2016: EGD to D2 with biopsies- Impression: * Antral ulcer- 1 cm linear ulcer greater curve * Gastritis * No gross enteropathy; biopsies obtained 09/04/2016: Colonoscopy to TI w/biopsy- Impression: * No gross colitis/ileitis; biopsies obtained. No pseudomembranes seen. *As of 09/05/2016, the patient is having some abdominal cramping. She is still on IV Morphine & being converted to po Oxycodone, plus antispasmotics (Bentyl) She is on po Flagyl 500 mg po TID for 09/04/2016: + C. difficile. *Please note, she is on IV Protonix 40 mg daily (would prefer to switch PPI to H2B, such as Pepcid 20 mg BID, in view of + C. diff). She is averaging 5 nonbloody loose stools daily. She denies any vomiting. Her nausea is improving, albeit on Reglan, which she is tolerating, without any EPS issues. She is hemodynamically stable, without any fevers or chills. She tolerated full liquids. She is ambulating. SUGGEST: Enteric precautions. Continue Flagyl 500 mg po TID. *Switch Protonix to Pepcid 20 mg IV/po BID. Advance to low residue diet as tolerated. Try converting to oral analgesics. Antispasmodics as needed. Zofran. Reglan. Avoid NSAIDs. Await pathology results from 09/04/2016: EGD/colonoscopy. Mobilize patient. Check stool antigen for H. pylori. Hopeful discharge in a.m. (The case was discussed with the patient's RN, who will convey the above to the medical house staff.) Problem List: 1. C. difficile colitis 2. Diarrhea 3. Abdominal pain 4. N&V (nausea and vomiting) 5. Gastric ulcer Subjective Subjective: (Patient seen & examined in coverage for Dr. Zacarias Garner. Chart reviewed). *As of 09/05/2016, the patient is having some abdominal cramping. She is still on IV Morphine & being converted to po Oxycodone, plus antispasmotics (Bentyl) She is on po Flagyl 500 mg po TID for 09/04/2016: + C. difficile. *Please note, she is on IV Protonix 40 mg daily (would prefer to switch PPI to H2B, such as Pepcid 20 mg BID, in view of + C. diff). She is averaging 5 nonbloody loose stools daily. She denies any vomiting. Her nausea is improving, albeit on Reglan, which she is tolerating, without any EPS issues. She is hemodynamically stable, without any fevers or chills. She tolerated full liquids. She is ambulating. Review of Systems: Full 14 point review of systems otherwise noncontributory, and as above. Constitutional: Denies: chills, fever, weakness. EENTM: Reports: no symptoms. Cardiovascular: Reports: no symptoms. Respiratory: Denies: cough, short of breath, sputum production. Gastrointestinal: Reports: abdominal pain, diarrhea. Denies: constipation, nausea, vomiting. Genitourinary: Reports: no symptoms. Musculoskeletal: Reports: no symptoms. Skin: Reports: no symptoms. Neurological/Psychological: Reports: no symptoms. Hematologic/Endocrine: Reports: no symptoms. Immunologic/Allergic: Reports: no symptoms. Objective Vital Signs and I&Os Vital Signs Date Time Temp Pulse Resp B/P Pulse O2 O2 Flow FiO2 Ox Delivery Rate 09/05 1454 98.9 72 20 122/60 96 Room Air 09/05 0642 98.6 60 20 118/66 96 09/04 2255 97.8 74 20 118/80 97 Room Air Intake & Output 09/05 1600 09/05 0400 09/04 1600 09/04 0400 09/03 1600 09/03 0400 Intake Total 2900 2220 675 1870 290 Output Total Balance 2900 2220 675 1870 290 Intake, IV 1600 2100 375 1750 250 Intake, Oral 1300 120 300 120 40 Number 2 3 Bowel Movements Patient 170 lb 170 lb Weight Physical Exam: Well-developed, well-nourished female, nontoxic appearing, in no apparent distress, looking comfortable. Sclera anicteric. Conjunctiva pink. Oropharynx clear. No oral thrush. No apthous ulcers. There is no adenopathy, thyromegaly, or JVD. No peripheral stigmata of inflammatory bowel disease or chronic liver disease on exam. No CVA tenderness. Lungs: clear to A&P. Heart exam: regular rate rhythm S1 and S2 without any murmur. Abdominal exam: normal bowel sounds, soft belly, mild B/L lower quadrant tenderness on deep palpation, without guarding or rebound. No mass. No organomegaly. No fluid shift. No pulsatile mass. Digital rectal exam: deferred at present (done per Dr. Zacarias Garner at 03/2017: colonoscopy). Extremities: without C, C, or E. No palpable cords. No rash. No acute arthropathy. Distal pulses 2+ bilaterally. DTRs 2+ bilaterally. Alert and oriented x 3. No cogwheeling or tardive dyskinesia on Reglan. Current Medications: Current Medications Sig/Polina Start time Last Medication Dose Route Stop Time Status Admin Acetaminophen 650 MG Q6P PRN 09/02 1715 AC PO Alprazolam 0.5 MG BID PRN 09/02 1715 AC 09/03 PO 09/09 1714 0015 Dicyclomine HCl 10 MG 4 TIMES/DAY 09/03 1800 AC 09/05 PO 1807 Enoxaparin Sodium 40 MG DAILY 09/02 1704 AC 09/05 SC 0824 Metoclopramide HCl 10 MG 4 TIMES/DAY 09/04 2200 AC 09/05 IV 1807 Metoclopramide HCl 10 MG 4 TIMES/DAY NPO 09/03 1800 DC 09/04 IV 1911 Metronidazole 500 MG Q8 09/04 1500 AC 09/05 PO 1324 Morphine Sulfate 3 MG Q3P PRN 09/05 0715 AC 09/05 IV 1807 Morphine Sulfate 2 MG Q3P PRN 09/03 1015 DC 09/05 IV 0351 Ondansetron HCl 4 MG TID PRN 09/04 1922 AC 09/05 IV 1140 Ondansetron HCl 4 MG TID 09/03 1620 DC 09/04 IV 1638 Oxycodone HCl 5 MG Q4 PRN 09/05 0704 AC 09/05 PO 0825 Oxycodone HCl 5 MG Q6H PRN 09/02 1715 DC 09/04 PO 1645 Pantoprazole Sodium 40 MG DAILY 09/04 1602 AC 09/05 IV 0917 Sodium Chloride 1,000 ML .Q8H 09/02 1700 AC 09/05 IV 1711 Results Pertinent Lab Results: Laboratory Tests 09/05 09/04 0632 0910 Chemistry Sodium (137 - 145 mmol/L) 142 143 Potassium (3.5 - 5.1 mmol/L) 4.2 3.9 Chloride (98 - 107 mmol/L) 106 104 Carbon Dioxide (22 - 30 mmol/L) 28 31 H Anion Gap (5 - 16) 8 9 BUN (7 - 17 mg/dL) 6 L 8 Creatinine (0.5 - 1.0 mg/dL) 0.6 0.5 Estimated GFR (>60 ml/min) > 60 > 60 BUN/Creatinine Ratio (7 - 25 %) 10.0 16.0 Hematology CBC w Diff NO MAN DIFF REQ WBC (4.8 - 10.8 /CUMM) 4.4 L RBC (4.20 - 5.40 /CUMM) 3.66 L Hgb (12.0 - 16.0 G/DL) 11.5 L Hct (37 - 47 %) 34.2 L MCV (81.0 - 99.0 FL) 93.4 MCH (27.0 - 31.0 PG) 31.3 H RDW (11.5 - 14.5 %) 12.8 Plt Count (130 - 400 /CUMM) 266 MPV (7.4 - 10.4 FL) 7.1 L Gran % (42.2 - 75.2 %) 56.9 Lymphocytes % (20.5 - 51.1 %) 35.0 Monocytes % (1.7 - 9.3 %) 7.2 Eosinophils % (0 - 5 %) 0.4 Basophils % (0.0 - 2.0 %) 0.5 Absolute Granulocytes (1.4 - 6.5 /CUMM) 2.5 Absolute Lymphocytes (1.2 - 3.4 /CUMM) 1.5 Absolute Monocytes (0.10 - 0.60 /CUMM) 0.3 Absolute Eosinophils (0.0 - 0.7 /CUMM) 0 Absolute Basophils (0.0 - 0.2 /CUMM) 0 PUBS MCHC (33.0 - 37.0 G/DL) 33.5 09/04 09/03 0620 1156 Hematology CBC w Diff NO MAN DIFF REQ WBC (4.8 - 10.8 /CUMM) 4.2 L RBC (4.20 - 5.40 /CUMM) 3.99 L Hgb (12.0 - 16.0 G/DL) 12.5 Hct (37 - 47 %) 37.0 MCV (81.0 - 99.0 FL) 92.8 MCH (27.0 - 31.0 PG) 31.4 H RDW (11.5 - 14.5 %) 13.2 Plt Count (130 - 400 /CUMM) 286 MPV (7.4 - 10.4 FL) 6.9 L Gran % (42.2 - 75.2 %) 49.8 Lymphocytes % (20.5 - 51.1 %) 40.0 Monocytes % (1.7 - 9.3 %) 8.8 Eosinophils % (0 - 5 %) 1.1 Basophils % (0.0 - 2.0 %) 0.3 Absolute Granulocytes (1.4 - 6.5 /CUMM) 2.1 Absolute Lymphocytes (1.2 - 3.4 /CUMM) 1.7 Absolute Monocytes (0.10 - 0.60 /CUMM) 0.4 Absolute Eosinophils (0.0 - 0.7 /CUMM) 0 Absolute Basophils (0.0 - 0.2 /CUMM) 0 PUBS MCHC (33.0 - 37.0 G/DL) 33.8 ESR Westergren (0 - 20 MM) 15 09/03 0655 Chemistry Total Bilirubin (0.2 - 1.3 mg/dL) 0.6 Direct Bilirubin (< 0.4 mg/dL) 0.4 AST (14 - 36 U/L) 26 ALT (9 - 52 U/L) 48 Alkaline Phosphatase (<127 U/L) 94 C-Reactive Prot, Quant (<1.0 mg/dL) 2.5 H C-React Prot High Sens (1.0 - 3.0 mg/L) > 15.0 H Total Protein (6.3 - 8.2 g/dL) 6.3 Albumin (3.5 - 5.0 g/dL) 3.7 Hematology CBC w Diff NO MAN DIFF REQ WBC (4.8 - 10.8 /CUMM) 4.0 L RBC (4.20 - 5.40 /CUMM) 4.20 Hgb (12.0 - 16.0 G/DL) 13.5 Hct (37 - 47 %) 39.6 MCV (81.0 - 99.0 FL) 94.3 MCH (27.0 - 31.0 PG) 32.1 H RDW (11.5 - 14.5 %) 13.3 Plt Count (130 - 400 /CUMM) 266 MPV (7.4 - 10.4 FL) 7.2 L Gran % (42.2 - 75.2 %) 50.5 Lymphocytes % (20.5 - 51.1 %) 38.6 Monocytes % (1.7 - 9.3 %) 9.8 H Eosinophils % (0 - 5 %) 0.8 Basophils % (0.0 - 2.0 %) 0.3 Absolute Granulocytes (1.4 - 6.5 /CUMM) 2.0 Absolute Lymphocytes (1.2 - 3.4 /CUMM) 1.5 Absolute Monocytes (0.10 - 0.60 /CUMM) 0.4 Absolute Eosinophils (0.0 - 0.7 /CUMM) 0 Absolute Basophils (0.0 - 0.2 /CUMM) 0 PUBS MCHC (33.0 - 37.0 G/DL) 34.1 Imaging/Other Studies: 09/02/2016: CT ABD & PELVIS W IV CONTRAST- Multiple fluid-filled loops of small and large bowel throughout the abdomen with minimal mucosal hyperemia. No significant circumferential mucosal thickening. This finding is nonspecific but could reflect an infectious or inflammatory enterocolitis given patient symptomatology. Nonvisualization of the appendix. No acute inflammatory changes within the right lower quadrant of the abdomen. Patent abdominal vasculature. IUD is present within the endometrial cavity. Multilevel DJD. 09/03/2016: EKG- NSR @ 64, normal axis, normal intervals, NSST inferiorly. 09/04/2016: EGD to D2 with biopsies- Impression: * Antral ulcer- 1 cm linear ulcer greater curve * Gastritis * No gross enteropathy; biopsies obtained 09/04/2016: Colonoscopy to TI w/biopsy- Impression: * No gross colitis/ileitis; biopsies obtained. No pseudomembranes seen.
[2016-09-05 22:20] VITALS: BP 127/64
[2016-09-06 06:52] VITALS: BP 124/63
--- NOTE | 2016-09-06 07:48 | PN- Housestaff ---
CARA VEGA,ANAMIKA 09/06/16 0743: Subjective Follow-up For: C.diff colitis Antral ulcer Subjective: I saw and examined the patient today morning She still reports burning epigastric pain, Headache nausea, 4 episodes of diarrhea. She didnt threw up so far. No associated fevers. She is able to tolerate liquid diet. Still on fluids NS@125ml/hr. Review of Systems Constitutional: Reports: see HPI, malaise, weakness. Gastrointestinal: Reports: abdominal pain, diarrhea, nausea. Denies: vomiting. Comments: ROS negative except the above. Objective Last 24 Hrs of Vital Signs/I&O Vital Signs Date Time Temp Pulse Resp B/P Pulse O2 O2 Flow FiO2 Ox Delivery Rate 09/06 0652 98.6 58 18 124/63 97 Room Air 09/05 2220 97.1 64 18 127/64 96 Room Air 09/05 1454 98.9 72 20 122/60 96 Room Air Intake & Output 09/06 0800 09/06 0000 09/05 1600 Intake Total 1000 1175 1400 Output Total Balance 1000 1175 1400 Intake, IV 1000 375 600 Intake, Oral 800 800 Number 2 Bowel Movements Physical Exam General Appearance: Alert, Oriented X3, Cooperative, Mild Distress Skin: No Rashes, No Breakdown HEENT: Atraumatic, PERRLA, EOMI Neck: Supple Cardiovascular: Normal S1, Normal S2, No Murmurs Lungs: Clear to Auscultation, Normal Air Movement Abdomen: Soft, tenderness in the epigastric region. , hypoactive bowel sounds. Neurological: Normal Tone, Sensation Intact Current Medications: Current Medications Sig/Polina Start time Last Medication Dose Route Stop Time Status Admin Acetaminophen 650 MG Q6P PRN 09/02 1715 AC PO Alprazolam 0.5 MG BID PRN 09/02 1715 AC 09/03 PO 09/09 1714 0015 Dicyclomine HCl 10 MG 4 TIMES/DAY 09/03 1800 AC 09/05 PO 2209 Enoxaparin Sodium 40 MG DAILY 09/02 1704 AC 09/05 SC 0824 Famotidine 20 MG BID 09/06 1000 AC PO Metoclopramide HCl 10 MG .STK-MED ONE 09/05 215 DC IM 09/05 215 Metoclopramide HCl 10 MG .STK-MED ONE 09/05 1619 DC IM 09/05 1620 Metoclopramide HCl 10 MG 4 TIMES/DAY 09/04 2200 AC 09/05 IV 2209 Metronidazole 500 MG Q8 09/04 1500 AC 09/06 PO 0556 Morphine Sulfate 3 MG Q3P PRN 09/05 0715 AC 09/06 IV 0556 Ondansetron HCl 4 MG TID PRN 09/04 1922 AC 09/05 IV 1140 Oxycodone HCl 5 MG Q4 PRN 09/05 0704 AC 09/05 PO 1936 Pantoprazole Sodium 40 MG DAILY 09/04 1602 DC 09/05 IV 0917 Sodium Chloride 1,000 ML .Q8H 09/02 1700 AC 09/06 IV 0042 Last 24 Hrs of Lab/[place] Results Last 24 Hrs of Labs/Mics: Laboratory Tests 09/06/16 0630: CBC w Diff Pending, WBC Pending, RBC Pending, Hgb Pending, Hct Pending, MCV Pending, MCH Pending, RDW Pending, Plt Count Pending, MPV Pending, PUBS MCHC Pending Assessment/Plan Assessment: Patient is a 41 YO F pmh sig for hypertension (recently diagnosed), endometriosis, fibroids, ovarian cysts, herniated disc, sinusitis (on Augmentin recently), right-sided colonic inflammation of unclear etiology came to the emergency room with nausea, vomiting, diarrhea and abdominal pain for the past 2 weeks. Her symptoms appear to be progressively worsened, contents of vomitus, Bile Nonbloody & diarrhea is greenish yellow without any blood in it. She had similar episode 4yr ago. ER course vs Afebrile, HR 132, RR 18, on room air Significant labs AST/ALT - 50/98, ALP 129 CT abdomen and pelvis IMPRESSION: Multiple fluid-filled loops of small and large bowel throughout the abdomen with minimal mucosal hyperemia. No significant circumferential mucosal thickening. This finding is nonspecific but could reflect an infectious or inflammatory enterocolitis given patient symptomatology. Plan Admitted to general medicine floor 1. C.diff colitis * s/p EGD and colonscopy 09/04 suggestive of antral ulcer and no signs of colitis /ileitis so far. * Stool C.diff positive : mild disease (WBC < 15, albumin 3.7, Cr 0,5), continue po metronidazole 500mg q8 #day2 * need to changed to oral, subjectively patient appears worse, objectively she is better and ready for discharge. * ESR & CRP are negative * started on regular diet. * IV morphine was increased to 1mg q3p for severe pain & po oxycodone 5mg q6p for moderate pain for abdominal pain/td. 2. Low back Pain * Recently received IV injections locally (possibly steroids) * Continue IV morphine/po oxycodone per pain pathway 3. Hypertension * Recently changed. * BP borderline, hold home medications losartan 50mg for now 4. Anxiety * continue home dose Xanax DVT Prophylaxis * SC lovenox Code Status * Full Code Problem List: 1. Sinusitis 2. C. difficile colitis 3. Gastric ulcer 4. Abdominal pain 5. Diarrhea 6. N&V (nausea and vomiting) Pain Ratin Pain Location: epigastric region Pain Goal: Pain 4 or less Pain Plan: dicyclomin, Oxycodon Tomorrow's Labs & Rationales: cbc bep KAREN VEGA,FRANCISCO JAVIER 09/06/16 1105: Attending MD Review Statement Attending Statement Attending Assessment/Plan: Patient seen and examined. Plan of care discussed with the medical team and the patient. Available lab work and radiology test reports were reviewed. Patient continues to complain of nausea which is being treated with Phenergan intravenous. She is Afebrile and complains of mild to moderate diarrhea. Last diarrhea episode was 4 AM today. Her by mouth intake has improved. Continues to have epigastric discomfort especially after eating or drinking. Vital signs stable. Abdomen soft with the mild tenderness in epigastric area. WBC count is 5.3. C. difficile was positive. Assessment and plan * C. difficile colitis- continue Flagyl for a total of 10 days * Persistent nausea- continue Phenergan when necessary * Encourage oral liquids- if oral intake remains poor continue IV fluids * Observe for next 24 hours. Patient may potentially be discharged home tomorrow. Note that patient has a 6-year-old son who is on chronic steroid therapy at home. Patient therefore was reluctant to go home while having diarrhea.
[2016-09-06 08:22] LABS: ABSOLUTE BASOPHIL COUNT 0 /CUMM (0.0-0.2); ABSOLUTE EOSINOPHIL COUNT 0 /CUMM (0.0-0.7); ABSOLUTE GRANULOCYTE CT 2.9 /CUMM (1.4-6.5); ABSOLUTE LYMPH COUNT 1.9 /CUMM (1.2-3.4); ABSOLUTE MONOCYTE COUNT 0.4 /CUMM (0.10-0.60); BASOPHIL % 0.6 % (0.0-2.0); EOSINOPHIL % 0.9 % (0-5); GRANULOCYTE % 55.2 % (42.2-75.2); HEMATOCRIT 36.8 % (37-47); MEAN CORPUSCULAR HGB 31.1 PG (27.0-31.0); MEAN CORPUSCULAR HGB CONC 33.3 G/DL (33.0-37.0); MEAN CORPUSCULAR VOLUME 93.3 FL (81.0-99.0); MEAN PLATELET VOLUME 7.3 FL (7.4-10.4); PLATELET COUNT 274 /CUMM (130-400); RBC DISTRIBUTION WIDTH 13.2 % (11.5-14.5); RED BLOOD CELL CT 3.94 /CUMM (4.20-5.40); WHITE BLOOD CELL COUNT 5.3 /CUMM (4.8-10.8)
--- NOTE | 2016-09-06 11:55 | PN- Gastroenterology ---
Assessment/Plan Assessment/Recommendations: (*Patient seen & examined. Chart reviewed in GI coverag for Dr. Zacarias Garner) 41 y/o female, HTN/asthma/hx GERD/HD/endometriosis/fibroids/ovarian cysts/? mild anxiety, admitted 09/02/2016 with acute on chronic diarrhea, abdominal cramps, transient minor transaminitis, n & v, remote PUD. 09/02/2016: serum HCG- negative, CMP- TBil 0.8, alk phos 129, AST 50, ALT 78, nl lipase 79,nl lytes, BUN/Cr 14/0.6, GFR > 60, WBC 9.8, H/H 15.3/45.9, nl MCV, PLT 322 09/03/2016: ESR 15, + CRP 2.5 09/04/2016: + C. difficile; stool C&S- neg, Shiga toxin- neg, Vibrio- neg, Yersinia- neg, Giardia Ag- neg, Crypto Ag- neg 09/05/2016: WBC 4.4, H/H 11.5/34.2, nl MCV, PLT 266, nl SMA7 09/02/2016: CT ABD & PELVIS W IV CONTRAST- Multiple fluid-filled loops of small and large bowel throughout the abdomen with minimal mucosal hyperemia. No significant circumferential mucosal thickening. This finding is nonspecific but could reflect an infectious or inflammatory enterocolitis given patient symptomatology. Nonvisualization of the appendix. No acute inflammatory changes within the right lower quadrant of the abdomen. Patent abdominal vasculature. IUD is present within the endometrial cavity. Multilevel DJD. 09/03/2016: EKG- NSR @ 64, normal axis, normal intervals, NSST inferiorly. 09/04/2016: EGD to D2 with biopsies- Impression: * Antral ulcer- 1 cm linear ulcer greater curve * Gastritis * No gross enteropathy; biopsies obtained 09/04/2016: Colonoscopy to TI w/biopsy- Impression: * No gross colitis/ileitis; biopsies obtained. No pseudomembranes seen. *As of 09/05/2016, the patient was having some subjective abdominal cramping. She was still on IV Morphine & being converted to po Oxycodone, plus antispasmotics (Bentyl) She was on po Flagyl 500 mg po TID for 09/04/2016: + C. difficile. *Please note, she was on IV Protonix 40 mg daily (would prefer to switch PPI to H2B, such as Pepcid 20 mg BID, in view of + C. diff). She was averaging 5 nonbloody loose stools daily. She denied any vomiting. Her nausea was improving, albeit on Reglan, which she was tolerating, without any EPS issues. She was hemodynamically stable, without any fevers or chills. She tolerated full liquids. She was ambulating. *As of 09/06/2016, the patient is hemodynamically stable and afebrile. She only had 2 episodes of diarrhea over the past 24 hours, on po Flagyl. Protonix had been switched to Pepcid 20 mg po BID, in view of the positive C. difficile. The patient has some subjective nausea, but no vomiting. She also has subjective abdominal pain, with an essentially negative abdominal exam. She is still getting IV MS. There appears to be some underlying anxiety issues. She tolerated a low-residue diet, and ate a bagel this morning uneventfully. SUGGEST: Enteric precautions. Continue Flagyl 500 mg po TID x 10 days. *Continue Pepcid 20 mg po BID. Continue low residue diet as tolerated. *Try converting to oral analgesics. Antispasmodics as needed. Zofran. Reglan. Avoid NSAIDs. Await pathology results from 09/04/2016: EGD/colonoscopy. Continue to mobilize patient. *Check stool antigen for H. pylori. Hopeful discharge soon, but patient's subjective symptoms are requiring IV MS. The case was discussed with the medical house staff. *Further inpatient GI follow up as needed. *Dr. Mir Garner can follow up with the patient in the office in a couple of weeks, She has the office number. Problem List: 1. C. difficile colitis 2. Diarrhea 3. Abdominal pain 4. Nausea 5. Gastric ulcer Subjective Subjective: *As of 09/06/2016, the patient is hemodynamically stable and afebrile. She only had 2 episodes of diarrhea over the past 24 hours, on po Flagyl. Protonix has been switched to Pepcid 20 mg po BID, in view of the positive C. difficile. The patient has some subjective nausea, but no vomiting. She also has subjective abdominal pain, with an essentially negative for abdominal exam. She is still getting IV MS. There appears to be some underlying anxiety issues. She tolerated a low-residue diet, and ate a bagel this morning uneventfully. Review of Systems: Full 14 point review of systems otherwise noncontributory, and as above. Constitutional: Denies: chills, fever, weakness. EENTM: Reports: no symptoms. Cardiovascular: Reports: no symptoms. Respiratory: Denies: cough, short of breath, sputum production. Gastrointestinal: Reports: mild subjective abdominal pain (benign abdominal exam), diarrhea- improving, mild subjective nausea. Denies: constipation, vomiting. Genitourinary: Reports: no symptoms. Musculoskeletal: Reports: no symptoms. Skin: Reports: no symptoms. Neurological/Psychological: Reports: no symptoms. Hematologic/Endocrine: Reports: no symptoms. Immunologic/Allergic: Reports: no symptoms. Objective Vital Signs and I&Os Vital Signs Date Time Temp Pulse Resp B/P Pulse O2 O2 Flow FiO2 Ox Delivery Rate 09/06 0652 98.6 58 18 124/63 97 Room Air 09/05 2220 97.1 64 18 127/64 96 Room Air 09/05 1454 98.9 72 20 122/60 96 Room Air Intake & Output 09/06 1600 09/06 0400 09/05 1600 09/05 0400 09/04 1600 09/04 0400 Intake Total 1000 1175 2900 2220 675 Output Total Balance 1000 1175 2900 2220 675 Intake, IV 3278 177 9467 2100 375 Intake, Oral 800 1300 120 300 Number 2 3 Bowel Movements Patient 170 lb Weight Physical Exam: Well-developed, well-nourished, pleasant female, nontoxic appearing, in no apparent distress, looking comfortable. Sclera anicteric. Conjunctiva pink. Oropharynx clear. No oral thrush. No apthous ulcers. There is no adenopathy, thyromegaly, or JVD. No peripheral stigmata of inflammatory bowel disease or chronic liver disease on exam. No CVA tenderness. Lungs: clear to A&P. Heart exam: regular rate rhythm S1 and S2 without any murmur. Abdominal exam: normal bowel sounds, soft belly, no objective tenderness palpation (wincing when just superficially touching anterior abdominal wall), without guarding or rebound. No mass. No organomegaly. No fluid shift. No pulsatile mass. Digital rectal exam: deferred at present (done per Dr. Zacarias Garner at 09/04/2016: colonoscopy). Extremities: without C, C, or E. No palpable cords. No rash. No acute arthropathy. Distal pulses 2+ bilaterally. DTRs 2+ bilaterally. Alert and oriented x 3. No cogwheeling or tardive dyskinesia on Reglan. Current Medications: Current Medications Sig/Polina Start time Last Medication Dose Route Stop Time Status Admin Acetaminophen 650 MG Q6P PRN 09/02 1715 AC PO Alprazolam 0.5 MG BID PRN 09/02 1715 AC 09/03 PO 09/09 1714 0015 Dicyclomine HCl 10 MG 4 TIMES/DAY 09/03 1800 AC 09/06 PO 0838 Enoxaparin Sodium 40 MG DAILY 09/02 1704 AC 09/06 SC 0838 Famotidine 20 MG BID 09/06 1000 AC 09/06 PO 0838 Metoclopramide HCl 10 MG .STK-MED ONE 09/05 2155 DC IM 09/05 2156 Metoclopramide HCl 10 MG .STK-MED ONE 09/05 1619 DC IM 09/05 1620 Metoclopramide HCl 10 MG 4 TIMES/DAY 09/04 2200 AC 09/06 IV 0839 Metronidazole 500 MG Q8 09/04 1500 AC 09/06 PO 0556 Morphine Sulfate 3 MG Q3P PRN 09/05 0715 AC 09/06 IV 1029 Ondansetron HCl 4 MG TID PRN 09/04 1922 AC 09/05 IV 1140 Oxycodone HCl 5 MG Q4 PRN 09/05 0704 AC 09/05 PO 1936 Pantoprazole Sodium 40 MG DAILY 09/04 1602 DC 09/05 IV 0917 Sodium Chloride 1,000 ML .Q8H 09/02 1700 AC 09/06 IV 0839 Results Pertinent Lab Results: Laboratory Tests 09/06 09/05 0630 0632 Chemistry Sodium (137 - 145 mmol/L) 142 Potassium (3.5 - 5.1 mmol/L) 4.2 Chloride (98 - 107 mmol/L) 106 Carbon Dioxide (22 - 30 mmol/L) 28 Anion Gap (5 - 16) 8 BUN (7 - 17 mg/dL) 6 L Creatinine (0.5 - 1.0 mg/dL) 0.6 Estimated GFR (>60 ml/min) > 60 BUN/Creatinine Ratio (7 - 25 %) 10.0 Hematology CBC w Diff NO MAN DIFF REQ NO MAN DIFF REQ WBC (4.8 - 10.8 /CUMM) 5.3 4.4 L RBC (4.20 - 5.40 /CUMM) 3.94 L 3.66 L Hgb (12.0 - 16.0 G/DL) 12.3 11.5 L Hct (37 - 47 %) 36.8 L 34.2 L MCV (81.0 - 99.0 FL) 93.3 93.4 MCH (27.0 - 31.0 PG) 31.1 H 31.3 H RDW (11.5 - 14.5 %) 13.2 12.8 Plt Count (130 - 400 /CUMM) 274 266 MPV (7.4 - 10.4 FL) 7.3 L 7.1 L Gran % (42.2 - 75.2 %) 55.2 56.9 Lymphocytes % (20.5 - 51.1 %) 36.3 35.0 Monocytes % (1.7 - 9.3 %) 7.0 7.2 Eosinophils % (0 - 5 %) 0.9 0.4 Basophils % (0.0 - 2.0 %) 0.6 0.5 Absolute Granulocytes (1.4 - 6.5 /CUMM) 2.9 2.5 Absolute Lymphocytes (1.2 - 3.4 /CUMM) 1.9 1.5 Absolute Monocytes (0.10 - 0.60 /CUMM) 0.4 0.3 Absolute Eosinophils (0.0 - 0.7 /CUMM) 0 0 Absolute Basophils (0.0 - 0.2 /CUMM) 0 0 PUBS MCHC (33.0 - 37.0 G/DL) 33.3 33.5 09/0410 0910 0620 Chemistry Sodium (137 - 145 mmol/L) 143 Potassium (3.5 - 5.1 mmol/L) 3.9 Chloride (98 - 107 mmol/L) 104 Carbon Dioxide (22 - 30 mmol/L) 31 H Anion Gap (5 - 16) 9 BUN (7 - 17 mg/dL) 8 Creatinine (0.5 - 1.0 mg/dL) 0.5 Estimated GFR (>60 ml/min) > 60 BUN/Creatinine Ratio (7 - 25 %) 16.0 Hematology CBC w Diff NO MAN DIFF REQ WBC (4.8 - 10.8 /CUMM) 4.2 L RBC (4.20 - 5.40 /CUMM) 3.99 L Hgb (12.0 - 16.0 G/DL) 12.5 Hct (37 - 47 %) 37.0 MCV (81.0 - 99.0 FL) 92.8 MCH (27.0 - 31.0 PG) 31.4 H RDW (11.5 - 14.5 %) 13.2 Plt Count (130 - 400 /CUMM) 286 MPV (7.4 - 10.4 FL) 6.9 L Gran % (42.2 - 75.2 %) 49.8 Lymphocytes % (20.5 - 51.1 %) 40.0 Monocytes % (1.7 - 9.3 %) 8.8 Eosinophils % (0 - 5 %) 1.1 Basophils % (0.0 - 2.0 %) 0.3 Absolute Granulocytes (1.4 - 6.5 /CUMM) 2.1 Absolute Lymphocytes (1.2 - 3.4 /CUMM) 1.7 Absolute Monocytes (0.10 - 0.60 /CUMM) 0.4 Absolute Eosinophils (0.0 - 0.7 /CUMM) 0 Absolute Basophils (0.0 - 0.2 /CUMM) 0 PUBS MCHC (33.0 - 37.0 G/DL) 33.8 Imaging/Other Studies: 09/02/2016: CT ABD & PELVIS W IV CONTRAST- Multiple fluid-filled loops of small and large bowel throughout the abdomen with minimal mucosal hyperemia. No significant circumferential mucosal thickening. This finding is nonspecific but could reflect an infectious or inflammatory enterocolitis given patient symptomatology. Nonvisualization of the appendix. No acute inflammatory changes within the right lower quadrant of the abdomen. Patent abdominal vasculature. IUD is present within the endometrial cavity. Multilevel DJD. 09/03/2016: EKG- NSR @ 64, normal axis, normal intervals, NSST inferiorly. 09/04/2016: EGD to D2 with biopsies- Impression: * Antral ulcer- 1 cm linear clean-based ulcer greater curve * Gastritis * No gross enteropathy; biopsies obtained 09/04/2016: Colonoscopy to TI w/biopsy- Impression: * No gross colitis/ileitis; biopsies obtained. No pseudomembranes seen.
[2016-09-06 15:16] VITALS: BP 130/80
[2016-09-06 22:26] VITALS: BP 110/70
--- NOTE | 2016-09-07 02:22 | NUR ---
OFFERED PATIENT OXYCODONE FOR PAIN RATHER THAN MORPHINE. PT STATES SHE DOES NOT WANT TO TAKE THE OXYCODONE YET SECONDARY TO EPIGASTRIC PAIN. ENCOURAGED PATIENT TO TRY OXYCODONE TO TRANSITION OFF IV MORPHONE. SHE SAYS SHE WILL TRY "LATER"
--- NOTE | 2016-09-07 04:22 | NUR ---
PT COMPLAINING OF PAIN. ONCE AGAIN OFFERED OXYCODONE PATIENT IS ANTICIPATED DISCHARGE. SHE WISHES TO WAIT UNTIL SHE EATS BREAKFAST BEFORE TRYING PO PAIN MED. MORPHINE GIVEN PER ORDER
--- NOTE | 2016-09-07 06:01 | PN- Housestaff ---
CARA VEGA,ANAMIKA 09/07/16 0601: Subjective Follow-up For: C.diff colitis Subjective: I saw and examined the patient today morning She is feeling better, still had nausea didnt threw up. No fevers overnight.Still had diarrhea but getting better. Review of Systems Constitutional: Reports: see HPI. Comments: ROS negative except the above. Objective Last 24 Hrs of Vital Signs/I&O Vital Signs Date Time Temp Pulse Resp B/P Pulse O2 O2 Flow FiO2 Ox Delivery Rate 09/066 98.0 60 20 110/70 98 Room Air 09/06 1516 99.1 55 18 130/80 96 09/06 0652 98.6 58 18 124/63 97 Room Air Intake & Output 09/07 0800 09/07 0000 09/06 1600 Intake Total 880 1800 Output Total Balance 880 1800 Intake, IV 200 1000 Intake, Oral 680 800 Number 1 Bowel Movements Physical Exam General Appearance: Alert, Oriented X3, Cooperative, No Acute Distress Skin: No Rashes, No Breakdown HEENT: Atraumatic, PERRLA, EOMI Neck: Supple Cardiovascular: Regular Rate, Normal S1, Normal S2, No Murmurs Lungs: Clear to Auscultation, Normal Air Movement Abdomen: diffuse tenderness present Neurological: Normal Gait, Normal Speech, Strength at 5/5 X4 Ext, Normal Tone, Sensation Intact Extremities: No Clubbing, No Cyanosis, No Edema Current Medications: Current Medications Sig/Polina Start time Last Medication Dose Route Stop Time Status Admin Acetaminophen 650 MG Q6P PRN 09/02 1715 AC PO Alprazolam 0.5 MG BID PRN 09/02 1715 AC 09/03 PO 09/09 1714 0015 Dicyclomine HCl 10 MG 4 TIMES/DAY 09/03 1800 AC 09/06 PO 2201 Enoxaparin Sodium 40 MG DAILY 09/02 1704 AC 09/06 SC 0838 Famotidine 20 MG BID 09/06 1000 AC 09/06 PO 2201 Metoclopramide HCl 10 MG AC & AT BEDTIME 09/06 1700 AC 09/06 PO 2201 Metoclopramide HCl 10 MG .STK-MED ONE 09/06 1307 DC IM 09/06 1308 Metoclopramide HCl 10 MG .STK-MED ONE 09/06 0832 DC IM 09/06 0833 Metoclopramide HCl 10 MG 4 TIMES/DAY 09/04 2200 DC 09/06 IV 1312 Metronidazole 500 MG Q8 09/04 1500 AC 09/06 PO 2201 Morphine Sulfate 1 MG Q3P PRN 09/06 1545 AC 09/07 IV 0409 Morphine Sulfate 3 MG Q3P PRN 09/05 0715 DC 09/06 IV 1329 Ondansetron HCl 4 MG TID PRN 09/04 1922 AC 09/07 IV 0412 Oxycodone HCl 5 MG Q6 09/06 1800 DC PO Oxycodone HCl 5 MG Q6 PRN 09/06 1615 AC PO Oxycodone HCl 5 MG Q4 PRN 09/05 0704 DC 09/05 PO 1936 Sodium Chloride 1,000 ML .Q20H 09/02 1700 AC 09/06 IV 1730 Last 24 Hrs of Lab/[place] Results Last 24 Hrs of Labs/Mics: Laboratory Tests 09/07/16 0936: Anion Gap 13, Estimated GFR > 60, BUN/Creatinine Ratio 10.0, Magnesium 1.7 Lines/Diet/Fluids Lines: peripheral lines Assessment/Plan Assessment: Patient is a 41 YO F pmh sig for hypertension (recently diagnosed), endometriosis, fibroids, ovarian cysts, herniated disc, sinusitis (on Augmentin recently), right-sided colonic inflammation of unclear etiology came to the emergency room with nausea, vomiting, diarrhea and abdominal pain for the past 2 weeks. Her symptoms appear to be progressively worsened, contents of vomitus, Bile Nonbloody & diarrhea is greenish yellow without any blood in it. She had similar episode 4yr ago. ER course vs Afebrile, HR 132, RR 18, on room air Significant labs AST/ALT - 50/98, ALP 129 CT abdomen and pelvis IMPRESSION: Multiple fluid-filled loops of small and large bowel throughout the abdomen with minimal mucosal hyperemia. No significant circumferential mucosal thickening. This finding is nonspecific but could reflect an infectious or inflammatory enterocolitis given patient symptomatology. Plan Admitted to general medicine floor 1. C.diff colitis * s/p EGD and colonscopy 09/04 suggestive of antral ulcer and no signs of colitis /ileitis so far. * Stool C.diff positive : mild disease (WBC < 15, albumin 3.7, Cr 0,5), continue po metronidazole 500mg q8 #day4 * need to changed to oral, subjectively patient appears worse, objectively she is better and ready for discharge. * ESR & CRP are negative * started on regular diet. * stable for discharge today. 2. Low back Pain * Recently received IV injections locally (possibly steroids) * Continue IV morphine/po oxycodone per pain pathway 3. Hypertension * Recently changed. * BP borderline, hold home medications losartan 50mg for now 4. Anxiety * continue home dose Xanax DVT Prophylaxis * SC lovenox Code Status * Full Code Problem List: 1. Sinusitis 2. C. difficile colitis 3. Gastric ulcer 4. Abdominal pain 5. Diarrhea 6. N&V (nausea and vomiting) Pain Ratin Pain Location: abdomen Pain Goal: Pain 4 or less Pain Plan: dicyclomen oxycodone Tomorrow's Labs & Rationales: none KATIE COUCH MD 09/07/16 1508: Attending MD Review Statement Attending Statement Attending MD Statement: examined this patient, discuss w/resident/PA/SECURITY COMPLIANCE SPECIALIST, agreed w/resident/PA/SECURITY COMPLIANCE SPECIALIST, reviewed EMR data (avail), discussed with nursing, discussed with case mgmt, amended to note Attending Assessment/Plan: patient seen and examined, overall doing better. She has been getting Flagyl as well as Pepcid for her gastric ulcer and C. difficile positive. She is medical stable for discharge today to follow-up with Dr. Garner as an outpatient as well as a primary care doctor. She will be given to pill supply for oxycodone for her pain. She will also be provided with a note for her work.
[2016-09-07 07:46] VITALS: BP 122/72
--- NOTE | 2016-09-07 08:22 | NUR ---
NURSING NOTE: PATIENT VERY DIFFICULT STICK. MST AND RN MANAGER LEARNING UNSUCCESSFUL FOR AM BLOOD DRAW. EDGARDO LOZANO CALLED AND WILL COME TO DRAW BLOOD SOON POSSIBLE.
[2016-09-07] MEDS ORDERED: FLAGYL250 M1 PO (08:38)
[2016-09-07] MEDS ORDERED: REGLAN10 M1 PO (08:39)
[2016-09-07] MEDS ORDERED: ZOFRAN ODT4 M1 SL (08:39)
[2016-09-07] MEDS ORDERED: FAMOTIDINE20 M1 PO (10:02)
[2016-09-07] MEDS ORDERED: OXYCODONE HCL5 M1 PO (11:18)
[2016-09-07] MEDS ORDERED: TYLENOL EXTRA500 M2 PO (11:18)
--- NOTE | 2016-09-07 12:35 | NUR ---
NURSING NOTE: PATIENT LEFT FLOOR VIA W/C WITH DISTRIBUTION FOR DISCHARGE. PATIENT A/OX3, C/O TOLERABLE PAIN TO ABDOMEN. PATIENT EDUCATED WITH DISCHARGE PAPERWORK AND ALL PRESCRIPTIONS GIVEN. PATIENT REQUESTED TO FILL PRESCRIPTIONS AT HER OWN PHARMACY. ALL BELONGINGS LEFT WITH PATIENT AND FAMILY.
--- NOTE | 2016-09-07 21:24 | Discharge Summary ---
Visit Information Visit Dates Admission Date: 09/02/16 Discharge Date: 09/07/16 Hospital Course Course Attending Physician: KATIE COUCH MD Primary Care Physician: SORAYA VERAS MD Consulting Request: Consulting Specialty: Gastroenterology Consulting Physician: Dr.Schwartz VEGA Esther Reason for Consult: Enterocolitis Hospital Course: Patient is a 41 YO F pmh sig for hypertension (recently diagnosed), endometriosis, fibroids, ovarian cysts, herniated disc, sinusitis (on Augmentin recently), right-sided colonic inflammation of unclear etiology came to the emergency room with nausea, vomiting, diarrhea and abdominal pain for the past 2 weeks. Her symptoms appear to be progressively worsened, contents of vomitus, Bile Nonbloody & diarrhea is greenish yellow without any blood in it. ER course vs Afebrile, HR 132, RR 18, on room air Significant labs AST/ALT - 50/98, ALP 129 CT abdomen and pelvis IMPRESSION: Multiple fluid-filled loops of small and large bowel throughout the abdomen with minimal mucosal hyperemia. No significant circumferential mucosal thickening. Plan Admitted to general medicine floor 1. C.diff colitis Intially thought of enterocolitis, underwent colonoscopy with EGD on 09/04/16 showing antral ulcer without any colitis. Her stool is postive for C.diff so she is considered having a mild disease based on her white count ( <15) and normal creatinine. She was started on metronidazole 500mg TID based for a total of 10days. As she appears subjective much worse, provided with IV pain medications, ondansetrone, metoclopramide at scheduled doses and discharged with Pepcid 20mg BID for antral ulcer, ondansetrone & metoclopramide for nausea. Extra strenth tylenol and few oxycodone medications are also provided for pain. She requested for a prescription saying she is hospitalized and off from work - provided. she was worried that she had a son on steroids at home, informed about precautions. biopsy -Negative for malignancy and H.Pylori Ulcer region - chronic inflammation and hyperplastic epithelial change present 2. Low back Pain Recently received IV injections locally (possibly steroids). Received oxycodone home dose, also prescribed pain medicines for few days. 3. Hypertension Her home medication losartan 50mg continued at discharge. 4. Anxiety Her home medication xanax was continued DVT Prophylaxis SC lovenox Allergies: Coded Allergies: NO KNOWN ALLERGIES (01/30/13) Significant Procedures: Endoscopy and colonoscopy Colonoscopy Procedure Procedure Date: 09/04/16 Procedure Type: colonoscopy w/biopsy (following EGD) Route Sales Representative: Esther Garner M.D. ASA Classification: III Indications: Pain, diarrhea Questionable history of colitis Instrument (Colonoscope): single channel Meds Received: OTONIEL Patient's Tolerance: good Complications: none Extent Reached: terminal ileum Prep: fair Impression: * No gross colitis/ileitis; biopsies obtained Procedure Date: 09/04/16 Procedure Type: EGD w/biopsy (preceding colonoscopy) Route Sales Representative: Esther Garner M.D. ASA Classification: III Indications: Pain, nausea, vomiting, and diarrhea Remote history of peptic ulcer disease Instrument: diagnostic gastroscope Meds Received: [facility] [place] Patient's Tolerance: good Complications: none Extent Reached: second part of duodenum Impression: * Antral ulcer * Gastritis * No gross enteropathy; biopsies obtained Biopsy results Colon biopsies A. TERMINAL ILEUM BIOPSY: UNREMARKABLE SMALL INTESTINE MUCOSA. B. RIGHT COLON BIOPSY: TWO PORTIONS OF UNREMARKABLE COLONIC MUCOSA, AND ONE PORTION OF UNREMARKABLE SMALL INTESTINE MUCOSA. C. TRANSVERSE COLON BIOPSY: UNREMARKABLE COLONIC MUCOSA. D. LEFT COLON BIOPSY: COLONIC MUCOSA WITH SMALL LYMPHOGLANDULAR COMPLEX. NEGATIVE FOR EVIDENCE OF MALIGNANCY. endoscopy biopsies A. DUODENUM, BIOPSY: UNREMARKABLE DUODENAL MUCOSA AND SUBMUCOSA. B. GASTRIC ANTRAL ULCER, BIOPSY: MODERATE CHRONIC INFLAMMATION, AND HYPERPLASTIC EPITHELIAL CHANGE. GIEMSA STAIN IS NEGATIVE FOR HELICOBACTER-TYPE STRUCTURES. NEGATIVE FOR EVIDENCE OF MALIGNANCY. C. GASTRIC ANTRUM BIOPSY: MILD CHRONIC INFLAMMATION AND CONGESTION. GIEMSA STAIN IS NEGATIVE FOR HELICOBACTER-TYPE STRUCTURES. NEGATIVE FOR EVIDENCE OF MALIGNANCY. D. GASTRIC BODY BIOPSY: MINIMAL CHRONIC INFLAMMATION. GIEMSA STAIN IS NEGATIVE FOR HELICOBACTER-TYPE STRUCTURES. NEGATIVE FOR EVIDENCE OF MALIGNANCY. Disposition Summary Disposition Principal Diagnosis: C.diff colitis Additional Diagnosis: Antral ulcer HTN low back pain Discharge Disposition: home or self care Discharge Instructions General Discharge Information Code Status: Full Code Patient's Diet: bland diet recommended, less spicy Patient's Activity: Activity as tolerated Follow-Up Instructions/Appts: Please follow up with PCP in a week Please follow up with Dictaphone Technician in a week Medications at Discharge Discharge Medications: Continue taking these medications: Losartan Potassium (Losartan Potassium) 50 MG TABLET 1 Tablet ORAL DAILY Qty = 90 Comments: NOT GIVEN IN HOSPITAL Alprazolam (Alprazolam) 0.5 MG TABLET 1 Tablet ORAL 2 x Daily as needed as needed for ANXIETY Qty = 90 Comments: NOT GIVEN IN HOSPITAL Oxycodone HCl (Oxycodone HCl) 10 MG TABLET 1 Tablet ORAL THREE TIMES A DAY NEEDED as needed for PAIN Qty = 90 Comments: NOT GIVEN IN HOSPITAL Start taking the following new medications: Metronidazole (Flagyl) 250 MG TABLET 500 Milligram ORAL EVERY 8 HOURS Qty = 21 No Refills Comments: Last Taken: 09/07/16 Time: 06:30 AM Famotidine (Famotidine) 20 MG TABLET 20 Milligram ORAL TWICE DAILY Qty = 60 No Refills Comments: Last Taken: 09/07/16 Time: 10:30 AM Ondansetron (Zofran Odt) 4 MG TAB.RAPDIS 1 Tablet SUBLINGUAL THREE TIMES DAILY Qty = 15 No Refills Comments: Last Taken: 09/07/16 Time: 10:30 AM Metoclopramide HCl (Reglan) 10 MG TABLET 1 Tablet ORAL THREE TIMES DAILY Qty = 20 No Refills Instructions: 30 minutes before meals and bedtime Comments: Last Taken: 09/07/16 Time: 12:00 PM Acetaminophen (Tylenol Extra Strength) 500 MG TABLET 1 Tablet ORAL THREE TIMES DAILY Qty = 10 No Refills Comments: NOT GIVEN IN HOSPITAL Oxycodone HCl (Oxycodone HCl) 5 MG TABLET 1 Tablet ORAL EVERY SIX HOURS NEEDED as needed for PAIN 7-10 Qty = 20 No Refills Comments: Last Taken: 09/07/16 Time: 10:30 AM Copies To: SORAYA VERAS MD; ESTHER GARNER MD Attending MD Review Statement Documenting Attending: KATIE COCUH MD
== END 2016-09-07 12:35 | DRG 373 ==
LOC: ENRESERVDT → ENRESERVTM → CANRESERV → ERH 12:11 → ENPENDDIS 14:46 → ERHI 14:46 → 2NB 14:46
PROVIDERS: Emergency Medicine; Internal Medicine; ADMIT Hospitalist
PROC: 0DB68ZX Excision of Stomach, Via Natural or Artificial Opening Endoscopic, Diagnostic (ICD-10-PCS; principal; 2016-09-04)
PROC: 0DBB8ZX Excision of Ileum, Via Natural or Artificial Opening Endoscopic, Diagnostic (ICD-10-PCS; principal; 2016-09-04)
PROC: 0DBG8ZX Excision of Left Large Intestine, Via Natural or Artificial Opening Endoscopic, Diagnostic (ICD-10-PCS; principal; 2016-09-04)
PROC: 0DBL8ZX Excision of Transverse Colon, Via Natural or Artificial Opening Endoscopic, Diagnostic (ICD-10-PCS; principal; 2016-09-04)
PROC: 0DBF8ZX Excision of Right Large Intestine, Via Natural or Artificial Opening Endoscopic, Diagnostic (ICD-10-PCS; principal; 2016-09-04)
PROC: 0DB98ZX Excision of Duodenum, Via Natural or Artificial Opening Endoscopic, Diagnostic (ICD-10-PCS; principal; 2016-09-04)
DX: A04.7 Enterocolitis due to Clostridium difficile (principal); K25.9 Gastric ulcer, unspecified as acute or chronic, without hemorrhage or perforation; I10 Essential (primary) hypertension; M54.5 Low back pain; F41.9 Anxiety disorder, unspecified
CPT/HCPCS: 2NBP; 2NBSP; 36415; 74177; 82436; 87045; 87328; 87329; 88305; 88312; 93005; 93010; 96374; 96375; 96376; J1650; J2405; J2550; J2765; J3101; J3250; Q9965

== ENCOUNTER 2017-06-25 14:51 | Emergency (ER) | payer OTHER ==
[~2017-06-25] VITALS: Ht 152.4 cm; Wt 77.1 kg
[~2017-06-25 14:51] MED LIST changes: +ALPRAZOLAM0.5 M4 PO; +DUEXIS 800-26.1 EACH PO; +FAMOTIDINE20 M1 PO; +FLAGYL250 M1 PO; +HYDROCHLOROTHIA25 M1 PO; +LEVSIN0.125 M1 PO; +LOSARTAN POTASS50 M1 PO; +OXYCODONE HCL10 M2 PO; +OXYCODONE HCL5 M1 PO; +PANTOPRAZOLE SO40 M1 PO; +REGLAN10 M1 PO; +TIZANIDINE HCL4 M1 PO; +TYLENOL EXTRA500 M2 PO; +ZOFRAN ODT4 M1 SL; +[UNRECOGNIZED DRUG - REMARK]
[2017-06-25] MEDS ORDERED: ONDANSETRON ODT8 M1 PO (18:16)
[2017-06-25] MEDS ORDERED: VENTOLIN HFA18 GM INH (18:16)
[2017-06-25] MEDS ORDERED: IBUPROFEN800 M1 PO (18:18)
[2017-06-25] MEDS ORDERED: AMITRIPTYLINE H25 M2 PO (18:18)
[2017-06-25] MEDS ORDERED: ALPRAZOLAM0.5 M4 PO (18:18)
[2017-06-25] MEDS ORDERED: OXYCODONE HCL10 M2 PO (18:18)
[2017-06-25] MEDS ORDERED: RESTASIS1 EACH OU (18:19)
[2017-06-25] MEDS ORDERED: MIRENA1 EACH (18:20)
--- NOTE | 2017-06-25 18:39 | ED GI/GU/ABDOMINAL COMPLAINT ---
History of Present Illness General Chief Complaint: Abdominal Pain/Flank Pain Stated Complaint: RT SIDE ABDOMINAL PAIN Source: patient Exam Limitations: no limitations Vital Signs & Intake/Output Vital Signs & Intake/Output Vital Signs Date Time Temp Pulse Resp B/P B/P Pulse O2 O2 Flow FiO2 Mean Ox Delivery Rate 06/26 1005 98.0 68 17 108/64 97 Room Air 06/26 0714 97.8 66 18 101/58 96 Room Air 06/26 0056 97.8 65 18 138/73 98 Room Air 06/25 2311 98.8 75 20 164/79 96 Room Air 06/25 1927 98.9 75 20 158/87 99 Room Air 06/25 1502 98.0 94 20 140/92 96 Room Air ED Intake and Output 06/26 0000 06/25 1200 Intake Total Output Total Balance Patient 170 lb Weight Weight Reported by Patient Measurement Method Allergies Coded Allergies: NO KNOWN ALLERGIES (01/30/13) Reconcile Medications Albuterol Sulfate (Ventolin Hfa) 90 MCG HFA.AER.AD 2 PUF INH Q4-6 PRN PRN ASTHMA (Reported) Alprazolam 0.5 MG TABLET 1 TAB PO TIDPRN PRN ANXIETY (Reported) Amitriptyline HCl 25 MG TABLET 1 TAB PO QPM GI (Reported) Cyclosporine (Restasis) 0.05 % DROPERETTE 1 GTT OU BID BOTH EYES (Reported) Hydrochlorothiazide 25 MG TABLET 1 TAB PO DAILY WATER RETENTION (Reported) Ibuprofen 800 MG TABLET 1 TAB PO TID PRN PAIN/INFLAMMATION (Reported) Levonorgestrel (Mirena) 20 MCG/24 HOUR (5 YEARS) IUD CONTROL (Reported) Losartan Potassium 50 MG TABLET 1 TAB PO DAILY BP (Reported) Metoclopramide HCl (Reglan) 10 MG TABLET 1 TAB PO TID nausea 30 minutes before meals and bedtime Ondansetron (Ondansetron Odt) 8 MG TAB.RAPDIS 1 TAB PO TID N/V (Reported) Oxycodone HCl 10 MG TABLET 1 TAB PO TIDPRN PRN PAIN (Reported) Pantoprazole Sodium 40 MG TABLET.DR 1 TAB PO DAILY ACID REFLUX (Reported) Tizanidine HCl 4 MG TABLET 1 TAB PO BID PRN SPASMS (Reported) Triage Note: PT C/O RIGHT FLAND PAIN THAT RADIATES INTO RIGHT ABDOMEN WITH N/V/D SINCE YESTERDAY. PT ISN'T SURE IF IT'S HER COLITIS OR NOT Triage Nurses Notes Reviewed? yes ? n Is pt currently ? No HPI: Patient presents for evaluation of right lower quadrant abdominal pain that began gradually about 2 days ago. Patient has also been vomiting and having diarrhea. She denies any associated fever or cold symptoms or dysuria. She has been taking Imodium with improvement in the diarrhea. She states she feels extremely bloated with eating. She does have a past history of colitis although denies a history of ulcerative colitis or Crohn's disease. She was treated in the past for C. difficile. Patient's vomiting and diarrhea have been intermittent but described as otherwise severe. There has been no blood noted. (Emily VEGA,Michael Mario) Past History Travel History Traveled to [place] past 21 day No Medical History Any Pertinent Medical History? see below for history Neurological: NONE EENT: NONE Cardiovascular: hypertension Respiratory: asthma Gastrointestinal: GERD, right colon inflammation - nonspecific Hepatic: NONE Renal: NONE Musculoskeletal: disk herniation Psychiatric: NONE Endocrine: NONE Blood Disorders: NONE Cancer(s): NONE QUALITY LIAISON/Reproductive: endometriosis fibroids ovarian cysts History of MRSA: No History of VRE: No History of CDIFF: Yes Surgical History Surgical History: 2 C-sections Psychosocial History Services at Home None What is your primary language Bulgarian Tobacco Use: Never used ETOH Use: denies use Illicit Drug Use: denies illicit drug use Family History Family History, If Any: grand father\, . FH: colon cancer FATHER FH: heart disease MOTHER FH: diabetes mellitus FH: heart disease, Onset: Unknown. Relation not specified for: FH: breast cancer Hx Contributory? No (Emily VEGA,Michael Mario) Review of Systems Review of Systems Constitutional: Reports: no symptoms. EENTM: Reports: no symptoms. Respiratory: Reports: no symptoms. Cardiovascular: Reports: no symptoms. GI: Reports: see HPI. Genitourinary: Reports: no symptoms. Musculoskeletal: Reports: no symptoms. Skin: Reports: no symptoms. Neurological/Psychological: Reports: no symptoms. Hematologic/Endocrine: Reports: no symptoms. Immunologic/Allergic: Reports: no symptoms. All Other Systems: Reviewed and Negative (Emily VEGA,Michael Mario) Physical Exam Physical Exam Gastrointestinal: see below Comments: Gen.: Well-nourished, well-developed, no acute respiratory distress. Head: Normocephalic, atraumatic. Eyes: Normal inspection bilaterally Ears: Normal inspection bilaterally Nose: Normal inspection Throat/mouth : Moist mucosa Neck: Supple, full range of motion, no goiter Heart: Regular rate and rhythm, no murmurs rubs or gallops Lungs: Clear to auscultation bilaterally with normal air entry Chest: Nontender Back: Normal range of motion Abdomen: Soft, epigastric tenderness with brief voluntary guarding but no rebound, nondistended, normal bowel sounds Extremities: Normal range of motion grossly, equal radial pulses, no cyanosis clubbing or edema Neurologic: Cranial nerves grossly intact, speech is clear Skin: warm and dry Psychiatric: Calm, cooperative, no apparent delusions or hallucinations Core Measures ACS in differential dx? No Sepsis Present: No Sepsis Focused Exam Completed? No (Emily VEGA,Michael Mario) Progress Differential Diagnosis: appendicitis, diverticulitis, inflamm bowel dis, kidney stone Plan of Care: Orders Procedure Date/time Status Add-on Test (ER Only) 06/25 2022 Active LIPASE 06/25 1853 Complete URINE 06/25 1519 Complete URINALYSIS 06/25 1519 Complete COMPREHENSIVE METABOLIC PANEL 06/25 1506 Complete CBC WITHOUT DIFFERENTIAL 06/25 1506 Complete Laboratory Tests 06/25/17 1853: Anion Gap 11, Estimated GFR > 60, BUN/Creatinine Ratio 13.3, Glucose 87, Calcium 9.6, Total Bilirubin 0.4, AST 38 H, ALT 69 H, Alkaline Phosphatase 110, Total Protein 7.0, Albumin 4.4, Globulin 2.6, Albumin/Globulin Ratio 1.7, Lipase 45, CBC w Diff NO MAN DIFF REQ, RBC 4.06 L, MCV 94.0, MCH 31.7 H, RDW 14.3, MPV 6.9 L, Gran % 72.3, Lymphocytes % 21.6, Monocytes % 5.0, Eosinophils % 0.8, Basophils % 0.3, Absolute Granulocytes 5.2, Absolute Lymphocytes 1.6, Absolute Monocytes 0.4, Absolute Eosinophils 0.1, Absolute Basophils 0, PUBS MCHC 33.7 06/25/17 1813: Lipase Cancelled, Total Beta HCG Cancelled 06/25/17 1521: Urine Color YEL, Urine Clarity CLEAR, Urine pH 6.5, Ur Specific [place] <= 1.005 , Urine Protein NEG, Urine Ketones NEG, Urine Nitrite NEG, Urine Bilirubin NEG, Urine Urobilinogen 0.2, Ur Leukocyte Esterase NEG, Ur Microscopic EXAM NOT REQUIRED, Urine Hemoglobin NEG, Urine Glucose NEG, Urine Test NEGATIVE 06/25/2017 7:12:35 PM Signed out to me by Dr. Diaz at change of shift. Pending labs, CT scan abdomen and pelvis. 10:09 PM Patient with right upper quadrant pain even after subsequent water. Ultrasound ordered for a.m. to rule out cholecystitis. 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 (Emily VEGA,Michael Mario) Diagnostic Imaging: Viewed by Me: CT Scan, Ultrasound. Discussed w/RAD: CT Scan, Ultrasound. Radiology Impression: PATIENT: TIMOTHY MATIAS PRESENT AGE: 42 PATIENT ACCOUNT NO: [id number] : 76 LOCATION: [facility] ORDERING PHYSICIAN: Michael Diaz MD SERVICE DATE: 06/25/17 EXAM TYPE : CAT - CT ABD & PELVIS W IV CONTRAST EXAMINATION: CT ABDOMEN AND PELVIS WITH CONTRAST CLINICAL INFORMATION: Right lower quadrant abdominal pain and tenderness. COMPARISON: CT of the abdomen and pelvis 02/03/2017. TECHNIQUE: Multidetector volumetric imaging was performed of the abdomen and pelvis following IV administration of 95 mL of Optiray 320 intravenous contrast. Sagittal and coronal reformatted images were obtained on the technologist's workstation. DLP: 428 mGy-cm FINDINGS: LUNG BASES: The visualized lung bases are unremarkable. LIVER, GALLBLADDER, AND BILIARY TREE: The liver is normal in size, shape, and attenuation. No focal hepatic lesion or biliary ductal dilatation is present. The gallbladder is unremarkable with no evidence of radiopaque gallstones, gallbladder wall thickening, or obvious pericholecystic inflammatory changes. PANCREAS: Unremarkable. SPLEEN: Unremarkable. ADRENAL GLANDS: Unremarkable. KIDNEYS AND URETERS: The kidneys are normal in size, shape, and attenuation. No hydronephrosis, hydroureter, or calculi seen. No perinephric stranding. BLADDER: Unremarkable. GASTROINTESTINAL TRACT: The small and large bowel are unremarkable. The appendix appears normal. There is no periappendiceal infiltration. There is trace free fluid in the pelvis. ABDOMINAL WALL: Stable small periumbilical hernia without infiltration. LYMPH NODES: Normal. VASCULAR: Unremarkable. PELVIC VISCERA: An intrauterine device is in place. A small fundal myoma is again identified. There is no pelvic mass. OSSEOUS STRUCTURES: Within normal limits for patient's age. IMPRESSION: No significant abnormality identified in the abdomen or pelvis. The appendix appears normal. There is no evidence of diverticulitis or nephrolithiasis. 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 <Electronically signed in Other Vendor System> SIGNED BY: Tanvi Geiger MD 06/25/172029 Hand-Off Endorsed To: Shamir Stewart MD Endorsed Time: 0700 Pending: ultrasound (Yoel VEGA,Yoly) Comments: Patient required recurrent pain medication. Case is discussed with Dr. Garcia. Surgery will consult on the patient. (Shamir Stewart MD) Departure Departure Condition: Stable Clinical Impression Primary Impression: Abdominal pain Departure Forms: Customer Survey General Discharge Information (Emily VEGA,Michael Mario) Departure Disposition: HOME OR SELF CARE Referrals: Latasha Gauthier MD (PCP/Family) Myles VEGA,Jamil Alonso Additional Instructions: FOLLOW UP WITH DR. GARCIA HAVE AN OUTPATIENT MUGA SCAN TO EXAM YOUR GALLBLADDER RETURN IF SYMPTOMS WORSEN OR FOR ANY COCNERNS Prescriptions: Current Visit Scripts Oxycodone HCl/Acetaminophen (Percocet 5-325 MG Tablet) 1-2 TAB PO Q6P PRN PAIN #20 TAB (Shamir Stewart MD)
[2017-06-25 19:09] LABS: ABSOLUTE BASOPHIL COUNT 0 /CUMM (0.0-0.2); ABSOLUTE EOSINOPHIL COUNT 0.1 /CUMM (0.0-0.7); ABSOLUTE GRANULOCYTE CT 5.2 /CUMM (1.4-6.5); ABSOLUTE LYMPH COUNT 1.6 /CUMM (1.2-3.4); ABSOLUTE MONOCYTE COUNT 0.4 /CUMM (0.10-0.60); BASOPHIL % 0.3 % (0.0-2.0); EOSINOPHIL % 0.8 % (0-5); GRANULOCYTE % 72.3 % (42.2-75.2); HEMATOCRIT 38.2 % (37-47); MEAN CORPUSCULAR HGB 31.7 PG (27.0-31.0); MEAN CORPUSCULAR HGB CONC 33.7 G/DL (33.0-37.0); MEAN PLATELET VOLUME 6.9 FL (7.4-10.4); PLATELET COUNT 337 /CUMM (130-400); RBC DISTRIBUTION WIDTH 14.3 % (11.5-14.5); RED BLOOD CELL CT 4.06 /CUMM (4.20-5.40); WHITE BLOOD CELL COUNT 7.2 /CUMM (4.8-10.8)
--- NOTE | 2017-06-25 20:30 | CT SCAN REPORT ---
EXAMINATION: CT ABDOMEN AND PELVIS WITH CONTRAST CLINICAL INFORMATION: Right lower quadrant abdominal pain and tenderness. COMPARISON: CT of the abdomen and pelvis 02/03/2017. TECHNIQUE: Multidetector volumetric imaging was performed of the abdomen and pelvis following IV administration of 95 mL of Optiray 320 intravenous contrast. Sagittal and coronal reformatted images were obtained on the technologist's workstation. DLP: 428 mGy-cm FINDINGS: LUNG BASES: The visualized lung bases are unremarkable. LIVER, GALLBLADDER, AND BILIARY TREE: The liver is normal in size, shape, and attenuation. No focal hepatic lesion or biliary ductal dilatation is present. The gallbladder is unremarkable with no evidence of radiopaque gallstones, gallbladder wall thickening, or obvious pericholecystic inflammatory changes. PANCREAS: Unremarkable. SPLEEN: Unremarkable. ADRENAL GLANDS: Unremarkable. KIDNEYS AND URETERS: The kidneys are normal in size, shape, and attenuation. No hydronephrosis, hydroureter, or calculi seen. No perinephric stranding. BLADDER: Unremarkable. GASTROINTESTINAL TRACT: The small and large bowel are unremarkable. The appendix appears normal. There is no periappendiceal infiltration. There is trace free fluid in the pelvis. ABDOMINAL WALL: Stable small periumbilical hernia without infiltration. LYMPH NODES: Normal. VASCULAR: Unremarkable. PELVIC VISCERA: An intrauterine device is in place. A small fundal myoma is again identified. There is no pelvic mass. OSSEOUS STRUCTURES: Within normal limits for patient's age. IMPRESSION: No significant abnormality identified in the abdomen or pelvis. The appendix appears normal. There is no evidence of diverticulitis or nephrolithiasis.
[2017-06-26 10:05] VITALS: BP 108/64
--- NOTE | 2017-06-26 10:05 | ULTRASOUND REPORT ---
EXAMINATION: US ABDOMEN LIMITED CLINICAL INFORMATION: Right upper quadrant pain with by mouth intake. COMPARISON: Right upper quadrant ultrasound 01/30/2013. Selected images CT abdomen 06/25/2017. TECHNIQUE: Real-time imaging of the right upper quadrant abdominal viscera. FINDINGS: PANCREAS: Normal. LIVER: Normal. The liver demonstrates normal size, contour and echogenicity. No focal lesion or intrahepatic biliary duct dilatation. GALLBLADDER: Normal. The gallbladder is physiologically distended without evidence of stones, sludge, polyps, wall thickening or pericholecystic fluid. COMMON BILE DUCT: The common bile duct is at the upper limits of normal in size measuring 5 mm proximally and 6 mm distally, similar to prior. RIGHT KIDNEY: Normal. No hydronephrosis. No renal calculi or focal parenchymal lesions. The kidney measures 10.3 cm in maximum dimension. FREE FLUID: None. IMPRESSION: No evidence of cholelithiasis or cholecystitis. Common bile duct is at the upper limits of normal in size without change from prior.
--- NOTE | 2017-06-26 10:19 | Cons- General Surgery ---
General Information and HPI Consulting Request Date of Consult: 06/26/17 Requested By: Dr Stewart, ER Reason for Consult: abdominal pain, possible gall bladder disease Source of Information: patient Exam Limitations: no limitations History of Present Illness: 42-year-old female with generalized abdominal pain, presents to the ER for evaluation. Pain started about 2 days ago. Initially she said it was in the right upper quadrant and a CT scan was ordered which was negative however on further evaluation by the ER provider it was felt as though her pain was more in the right upper quadrant an ultrasound was ordered which was also reported as negative. She has been evaluated for gallbladder trouble in the past, several years ago, she had an ultrasound that was negative, she has history of colitis and states that she was told by her tool crib lead not to eat any S or vegetables and she had such a day prior to her symptoms starting. She has been complaining of diarrhea and vomiting and generalized abdominal crampy pain. She does not have any symptoms that radiate into the back. No fever. She states she feels bloated with eating. Of note, her aunt has had her gallbladder out. Allergies/Medications Allergies: Coded Allergies: NO KNOWN ALLERGIES (01/30/13) Home Med List: Albuterol Sulfate (Ventolin Hfa) 90 MCG HFA.AER.AD 2 PUF INH Q4-6 PRN PRN ASTHMA (Reported) Alprazolam 0.5 MG TABLET 1 TAB PO TIDPRN PRN ANXIETY (Reported) Amitriptyline HCl 25 MG TABLET 1 TAB PO QPM GI (Reported) Cyclosporine (Restasis) 0.05 % DROPERETTE 1 GTT OU BID BOTH EYES (Reported) Hydrochlorothiazide 25 MG TABLET 1 TAB PO DAILY WATER RETENTION (Reported) Ibuprofen 800 MG TABLET 1 TAB PO TID PRN PAIN/INFLAMMATION (Reported) Levonorgestrel (Mirena) 20 MCG/24 HOUR (5 YEARS) IUD CONTROL (Reported) Losartan Potassium 50 MG TABLET 1 TAB PO DAILY BP (Reported) Metoclopramide HCl (Reglan) 10 MG TABLET 1 TAB PO TID nausea 30 minutes before meals and bedtime Ondansetron (Ondansetron Odt) 8 MG TAB.RAPDIS 1 TAB PO TID N/V (Reported) Oxycodone HCl 10 MG TABLET 1 TAB PO TIDPRN PRN PAIN (Reported) Pantoprazole Sodium 40 MG TABLET. 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 FH: colon cancer FATHER FH: heart disease MOTHER FH: diabetes mellitus FH: heart disease, Onset: Unknown. Relation not specified for: FH: breast cancer Psychosocial History Who Do You Live With? parent Services at Home: None ETOH Use: denies use Illicit Drug Use: denies illicit drug use Functional Ability ADLs Independent: dressing, eating, toileting, bathing. Review of Systems Review of Systems: Review of systems: See HPI, all other systems negative. Constitutional: No chills fever or weight loss HEENT: No visual changes no sore throat no congestion Cardiovascular: No chest pain ,palpitation , orthopnea or ankle swelling Skin: No jaundice no rashes Respiratory: No dyspnea cough sputum or hemoptysis GI: See HPI : No dysuria no hematuria Musclulo skeletal: No back pain no neck pain, Neurologic: No numbness no confusion Psych: No stress anxiety or depression,. Heme/endocrine: No bruising no bleeding no polyuria or polydipsia Immunology: No splenectomy or history of AIDS Exam & Diagnostic Data Vital Signs and I&O Vital Signs Date Time Temp Pulse Resp B/P B/P Pulse O2 O2 Flow FiO2 Mean Ox Delivery Rate 06/26 1005 98.0 68 17 108/64 97 Room Air 06/26 0714 97.8 66 18 101/58 96 Room Air 06/26 0056 97.8 65 18 138/73 98 Room Air 06/25 2311 98.8 75 20 164/79 96 Room Air 06/25 1927 98.9 75 20 158/87 99 Room Air 06/25 1502 98.0 94 20 140/92 96 Room Air Intake & Output 06/26 1600 06/26 0800 06/26 0000 06/25 1600 06/25 0800 06/25 0000 Intake Total Output Total Balance Patient 170 lb Weight Weight Reported by Patient Measurement Method Physical Exam: Well-developed well-nourished no apparent distress. HEENT: Atraumatic, extraocular motion intact Neck: Supple, no lymphadenopathy Respiratory: No respiratory distress clear to auscultation bilateral. Heart: Regular rate and rhythm no murmur. Abdomen: Soft, nondistended, positive bowel sounds. Tenderness in the generalized abdominal region, most notably in the left lower and right lower quadrants. There is a negative Gloria sign Extremities: No edema, no calf pain Neuro: Alert and oriented x3 Psych: Mood affect normal, normal memory normal judgment. Skin: Warm and dry, no rash on exposed skin Last 24 Hours of Labs: Laboratory Tests 06/25 06/25 1853 1813 Chemistry Sodium (137 - 145 mmol/L) 142 Potassium (3.5 - 5.1 mmol/L) 3.9 Chloride (98 - 107 mmol/L) 105 Carbon Dioxide (22 - 30 mmol/L) 26 Anion Gap (5 - 16) 11 BUN (7 - 17 mg/dL) 8 Creatinine (0.5 - 1.0 mg/dL) 0.6 Estimated GFR (>60 ml/min) > 60 BUN/Creatinine Ratio (7 - 25 %) 13.3 Glucose (65 - 99 mg/dL) 87 Calcium (8.4 - 10.2 mg/dL) 9.6 Total Bilirubin (0.2 - 1.3 mg/dL) 0.4 AST (14 - 36 U/L) 38 H ALT (9 - 52 U/L) 69 H Alkaline Phosphatase (<127 U/L) 110 Total Protein (6.3 - 8.2 g/dL) 7.0 Albumin (3.5 - 5.0 g/dL) 4.4 Globulin (1.9 - 4.2 gm/dL) 2.6 Albumin/Globulin Ratio (1.1 - 2.2 %) 1.7 Lipase (23 - 300 U/L) 45 Cancelled Total Beta HCG Cancelled Hematology CBC w Diff NO MAN DIFF REQ WBC (4.8 - 10.8 /CUMM) 7.2 RBC (4.20 - 5.40 /CUMM) 4.06 L Hgb (12.0 - 16.0 G/DL) 12.9 Hct (37 - 47 %) 38.2 MCV (81.0 - 99.0 FL) 94.0 MCH (27.0 - 31.0 PG) 31.7 H RDW (11.5 - 14.5 %) 14.3 Plt Count (130 - 400 /CUMM) 337 MPV (7.4 - 10.4 FL) 6.9 L Gran % (42.2 - 75.2 %) 72.3 Lymphocytes % (20.5 - 51.1 %) 21.6 Monocytes % (1.7 - 9.3 %) 5.0 Eosinophils % (0 - 5 %) 0.8 Basophils % (0.0 - 2.0 %) 0.3 Absolute Granulocytes (1.4 - 6.5 /CUMM) 5.2 Absolute Lymphocytes (1.2 - 3.4 /CUMM) 1.6 Absolute Monocytes (0.10 - 0.60 /CUMM) 0.4 Absolute Eosinophils (0.0 - 0.7 /CUMM) 0.1 Absolute Basophils (0.0 - 0.2 /CUMM) 0 PUBS MCHC (33.0 - 37.0 G/DL) 33.7 06/25 1521 Urines Urine Color (YEL,AMB,STR) YEL Urine Clarity (CLEAR) CLEAR Urine pH (5.0 - 8.0) 6.5 Ur Specific [place] (1.001 - 1.035) <= 1.005 Urine Protein (NEG,<30 MG/DL) NEG Urine Ketones (NEG) NEG Urine Nitrite (NEG) NEG Urine Bilirubin (NEG) NEG Urine Urobilinogen (0.1 - 1.0 EU/dl) 0.2 Ur Leukocyte Esterase (NEG) NEG Ur Microscopic EXAM NOT REQUIRED Urine Hemoglobin (NEG) NEG Urine Glucose (N MG/DL) NEG Urine Test NEGATIVE Imaging Results: PATIENT: TIMOTHY MATIAS PRESENT AGE: 42 PATIENT ACCOUNT NO: [id number] : 76 LOCATION: [facility] ORDERING PHYSICIAN: Michael Diaz MD SERVICE DATE: 06/25/17 EXAM TYPE: CAT - CT ABD & PELVIS W IV CONTRAST EXAMINATION: CT ABDOMEN AND PELVIS WITH CONTRAST CLINICAL INFORMATION: Right lower quadrant abdominal pain and tenderness. COMPARISON: CT of the abdomen and pelvis 02/03/2017. TECHNIQUE: Multidetector volumetric imaging was performed of the abdomen and pelvis following IV administration of 95 mL of Optiray 320 intravenous contrast. Sagittal and coronal reformatted images were obtained on the technologist's workstation. DLP: 428 mGy-cm FINDINGS: LUNG BASES: The visualized lung bases are unremarkable. LIVER, GALLBLADDER, AND BILIARY TREE: The liver is normal in size, shape, and attenuation. No focal hepatic lesion or biliary ductal dilatation is present. The gallbladder is unremarkable with no evidence of radiopaque gallstones, gallbladder wall thickening, or obvious pericholecystic inflammatory changes. PANCREAS: Unremarkable. SPLEEN: Unremarkable. ADRENAL GLANDS: Unremarkable. KIDNEYS AND URETERS: The kidneys are normal in size, shape, and attenuation. No hydronephrosis, hydroureter, or calculi seen. No perinephric stranding. BLADDER: Unremarkable. GASTROINTESTINAL TRACT: The small and large bowel are unremarkable. The appendix appears normal. There is no periappendiceal infiltration. There is trace free fluid in the pelvis. ABDOMINAL WALL: Stable small periumbilical hernia without infiltration. LYMPH NODES: Normal. VASCULAR: Unremarkable. PELVIC VISCERA: An intrauterine device is in place. A small fundal myoma is again identified. There is no pelvic mass. OSSEOUS STRUCTURES: Within normal limits for patient's age. IMPRESSION: No significant abnormality identified in the abdomen or pelvis. The appendix appears normal. There is no evidence of diverticulitis or nephrolithiasis. 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 COMPARISON: Right upper quadrant ultrasound 01/30/2013. Selected images CT abdomen 06/25/2017. TECHNIQUE: Real-time imaging of the right upper quadrant abdominal viscera. FINDINGS: PANCREAS: Normal. LIVER: Normal. The liver demonstrates normal size, contour and echogenicity. No focal lesion or intrahepatic biliary duct dilatation. GALLBLADDER: Normal. The gallbladder is physiologically distended without evidence of stones, sludge, polyps, wall thickening or pericholecystic fluid. COMMON BILE DUCT: The common bile duct is at the upper limits of normal in size measuring 5 mm proximally and 6 mm distally, similar to prior. RIGHT KIDNEY: Normal. No hydronephrosis. No renal calculi or focal parenchymal lesions. The kidney measures 10.3 cm in maximum dimension. FREE FLUID: None. IMPRESSION: No evidence of cholelithiasis or cholecystitis. Common bile duct is at the upper limits of normal in size without change from prior. 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 <Electronically signed in Other Vendor System> SIGNED BY: Jim Johnson MD 06/26/17 1005 Assessment/Plan Assessment/Plan 42-year-old female with nausea vomiting diarrhea and generalized abdominal pain. Her emergency room workup for gallbladder disease is negative and she is feeling well enough to be discharged home. She has very mild elevated AST and ALT which is of unclear significance in this case but does not appear to be an obstructive gallbladder pattern. I recommend that she proceed with a HIDA scan as outpatient and follows up with general surgery after the outpatient study. clears, bland diet, advance as tolerated. Discussed with Dr. Bueno. Discussed with patient who understands and agrees with plan Problem List: 1. Abdominal pain 2. Nausea vomiting and diarrhea Consult Acknowledgment - Thank you for your consult request.
[2017-06-26] MEDS ORDERED: PERCOCET 5-3251 EACH PO (10:26)
== END 2017-06-26 10:53 ==
LOC: ERH 14:51
PROVIDERS: Emergency Medicine
DX: R10.13 Epigastric pain (principal)
CPT/HCPCS: 74177; 81003; 81025; 96365; 96375; 96376; J1885; J2405; J2550

== ENCOUNTER 2018-02-22 10:18 | Emergency (ER) | payer OTHER ==
[~2018-02-22] VITALS: Ht 152.4 cm; Wt 79.4 kg
[~2018-02-22 10:18] MED LIST changes: +AMITRIPTYLINE H25 M2 PO; +IBUPROFEN800 M1 PO; +MIRENA1 EACH; +ONDANSETRON ODT8 M1 PO; +PERCOCET 5-3251 EACH PO; +RESTASIS1 EACH OU; +VENTOLIN HFA18 GM INH
[2018-02-22 11:48] LABS: ABSOLUTE BASOPHIL COUNT 0 /CUMM (0.0-0.2); ABSOLUTE EOSINOPHIL COUNT 0.1 /CUMM (0.0-0.7); ABSOLUTE GRANULOCYTE CT 4.8 /CUMM (1.4-6.5); ABSOLUTE LYMPH COUNT 2.1 /CUMM (1.2-3.4); ABSOLUTE MONOCYTE COUNT 0.6 /CUMM (0.10-0.60); BASOPHIL % 0.5 % (0.0-2.0); EOSINOPHIL % 1.2 % (0-5); GRANULOCYTE % 63.4 % (42.2-75.2); HEMATOCRIT 35.5 % (37-47); MEAN CORPUSCULAR HGB 30.6 PG (27.0-31.0); MEAN CORPUSCULAR HGB CONC 33.8 G/DL (33.0-37.0); MEAN CORPUSCULAR VOLUME 90.4 FL (81.0-99.0); MEAN PLATELET VOLUME 7.2 FL (7.4-10.4); PLATELET COUNT 371 /CUMM (130-400); RBC DISTRIBUTION WIDTH 14.1 % (11.5-14.5); RED BLOOD CELL CT 3.92 /CUMM (4.20-5.40); WHITE BLOOD CELL COUNT 7.5 /CUMM (4.8-10.8)
--- NOTE | 2018-02-22 13:55 | ED GI/GU/ABDOMINAL COMPLAINT ---
History of Present Illness General Chief Complaint: Abdominal Pain/Flank Pain Stated Complaint: RIGHT SIDED ABD PAIN, +NVD,X 5 DAYS Source: patient Exam Limitations: no limitations Vital Signs & Intake/Output Vital Signs & Intake/Output Vital Signs Date Time Temp Pulse Resp B/P B/P Pulse O2 O2 Flow FiO2 Mean Ox Delivery Rate 02/22 1447 98.3 74 20 134/70 100 Room Air 02/22 1022 98.4 102 18 126/83 95 Room Air Allergies Coded Allergies: NO KNOWN ALLERGIES (01/30/13) Reconcile Medications Albuterol Sulfate (Ventolin Hfa) 90 MCG HFA.AER.AD 2 PUF INH Q4-6 PRN PRN ASTHMA (Reported) Alprazolam 0.5 MG TABLET 1 TAB PO TIDPRN PRN ANXIETY (Reported) Amitriptyline HCl 25 MG TABLET 1 TAB PO QPM GI (Reported) Cyclosporine (Restasis) 0.05 % DROPERETTE 1 GTT OU BID BOTH EYES (Reported) Hydrochlorothiazide 25 MG TABLET 1 TAB PO DAILY WATER RETENTION (Reported) Ibuprofen 800 MG TABLET 1 TAB PO TID PRN PAIN/INFLAMMATION (Reported) Levonorgestrel (Mirena) 20 MCG/24 HOUR (5 YEARS) IUD CONTROL (Reported) Losartan Potassium 50 MG TABLET 1 TAB PO DAILY BP (Reported) Metoclopramide HCl (Reglan) 10 MG TABLET 1 TAB PO TID nausea 30 minutes before meals and bedtime Omeprazole 40 MG CAPSULE.DR 1 CAP PO DAILY abd pain/acid reflux Ondansetron (Ondansetron Odt) 8 MG TAB.RAPDIS 1 TAB PO TID N/V (Reported) Oxycodone HCl 10 MG TABLET 1 TAB PO TIDPRN PRN PAIN (Reported) Oxycodone HCl/Acetaminophen (Percocet 5-325 MG Tablet) 5 MG-325 MG TABLET 1-2 TAB PO BID pain Oxycodone HCl/Acetaminophen (Percocet 5-325 MG Tablet) 5 MG-325 MG TABLET 1-2 TAB PO Q6P PRN PAIN Pantoprazole Sodium 40 MG TABLET.DR 1 TAB PO DAILY ACID REFLUX (Reported) Tizanidine HCl 4 MG TABLET 1 TAB PO BID PRN SPASMS (Reported) Triage Note: 42F GENERALLY WELL APPEARING COMES TO ED TODAY FOR REPORTED N/V X5 DAYS WITH ASSOCIATED MID EPIGASTRIC PAIN THAT RADIATES TO RIGHT SIDE. ALSO REPORTS DIARRHEA SINCE WEDNESDAY, VOMITED 2X TODAY. TOOK IMMODIUM WHICH HAS HELPED. HAS BEEN TAKING REGLAN AND ZOFRAN WITH MODERATE RELIEF. SIB DR [facility] GI FOR EVAL. STILL HAS GALLBLADDER. LAYING DOWN AND MOVEMENT EXACERBATE PAIN. 02/04 PAIN Triage Nurses Notes Reviewed? yes LMP (ages 10-50): unknown ? N Is pt currently ? No Onset: Last week Duration: intermittent Timing: multiple episodes today Quality/Severity: cramping, severe, vomiting Location: epigastric, right upper quadrant Radiation: flank, RUQ Activities at Onset: eating Prior Abdominal Problems: none Sexually Active: Yes Modifying Factors: Worsens With: eating, vomiting. Associated Symptoms: abdominal pain, headache, loss of appetite, nausea/vomiting HPI: 42 yo female with a history of HTN, asthma, and PUD presents with abdominal pain with vomiting and diarrhea radiating to right upper flank presents since last . Patient recalls eating soup at work and proceeding to vomit. Since then she has been vomiting that has been yellow in color, she has had loose watery stool that is bettwen a light brown to yellow color. Denies visualizing any blood in both vomit and stool. She has not been able to eat or drink due to vomiting and a loss of appetite. She took some imodium this morning to help with her diarrhea. She reports feeling dehyrated and dizzy. Denies any chest pain, shortness of breath, vaginal pain, urination difficulty, no cough. She states she has chills and/or fever when she vomits. Had a recent endoscopy in September of this year that confirmed a few peptic ulcers that she is being monitored for by GI who had also given her an antacid to take but she does not recall what it was. She denies any alcohol or recreational drug usage and is sexually active but has a IUD placed. She has a herniated disc that she takes percocet for PRN and HTN that she manages with losartan and HCTZ. Also took 500 mg Tylenol for MASON. (Jeronimo Morales) Past History Travel History Traveled to [place] past 21 day No Medical History Any Pertinent Medical History? 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 FH: colon cancer FATHER FH: heart disease MOTHER FH: diabetes mellitus FH: heart disease, Onset: Unknown. Relation not specified for: FH: breast cancer Hx Contributory? No (Jeronimo Morales) Review of Systems Review of Systems Constitutional: Reports: see HPI. EENTM: Reports: no symptoms. Respiratory: Reports: no symptoms. Cardiovascular: Reports: no symptoms. GI: Reports: see HPI. Genitourinary: Reports: no symptoms. Musculoskeletal: Reports: no symptoms. Skin: Reports: no symptoms. Neurological/Psychological: Reports: no symptoms. Hematologic/Endocrine: Reports: no symptoms. Immunologic/Allergic: Reports: no symptoms. All Other Systems: Reviewed and Negative (Jeronimo Morales) Physical Exam Physical Exam General Appearance: well developed/nourished, no apparent distress, alert, awake Head: atraumatic, normal appearance Eyes: Bilateral: normal appearance. Ears, Nose, Throat, Mouth: hearing grossly normal, moist mucous membrane Neck: normal inspection Respiratory: normal breath sounds, no respiratory distress Cardiovascular: regular rate/rhythm Gastrointestinal: soft, tenderness Back: normal inspection Extremities: normal range of motion Neurologic/Psych: awake, alert, oriented x 3 Skin: intact, normal color Core Measures ACS in differential dx? No Sepsis Present: No Sepsis Focused Exam Completed? No (Jeronimo Morales) Progress Differential Diagnosis: appendicitis, biliary colic, cholecystitis, gastritis, pancreatitis, PUD/GERD Plan of Care: Orders Procedure Date/time Status EKG 02/22 1311 Active URINE 02/22 1021 Complete URINALYSIS 02/22 1021 Complete LIPASE 02/22 1021 Complete LACTIC ACID 02/22 1021 Complete COMPREHENSIVE METABOLIC PANEL 02/22 1021 Complete CBC WITHOUT DIFFERENTIAL 02/22 1021 Complete Current Medications Sig/Polina Start time Last Medication Dose Stop Time Status Admin Ketorolac 30 MG ONCE ONE 02/22 1315 CAN Tromethamine 02/22 1316 (Toradol) Laboratory Tests 02/22/18 1321: Lactic Acid Cancelled 02/22/18 1128: Urinalysis LIGHT H, Urine Color STRAW, Urine Clarity HAZY H, Urine pH 6.0, Ur Specific Warren <= 1.005, Urine Protein NEG, Urine Ketones NEG, Urine Nitrite NEG, Urine Bilirubin NEG, Urine Urobilinogen 0.2, Ur Leukocyte Esterase NEG, Ur Microscopic SEDIMENT EXAMINED, Urine WBC 1-3 H, Ur Epithelial Cells MOD H, Urine Bacteria FEW H, Urine Hemoglobin NEG, Urine Glucose NEG, Urine Test NEGATIVE 02/22/18 1120: Anion Gap 11, Estimated GFR > 60, BUN/Creatinine Ratio 18.3, Glucose 86, Lactic Acid 0.7, Calcium 9.4, Total Bilirubin 0.4, AST 19, ALT 43, Alkaline Phosphatase 102, Total Protein 6.9, Albumin 4.5, Globulin 2.4, Albumin/Globulin Ratio 1.9, Lipase 38, CBC w Diff NO MAN DIFF REQ, RBC 3.92 L, MCV 90.4, MCH 30.6, MCHC 33.8, RDW 14.1, MPV 7.2 L, Gran % 63.4, Lymphocytes % 27.4, Monocytes % 7.5, Eosinophils % 1.2, Basophils % 0.5, Absolute Granulocytes 4.8, Absolute Lymphocytes 2.1, Absolute Monocytes 0.6, Absolute Eosinophils 0.1, Absolute Basophils 0 Diagnostic Imaging: Viewed by Me: CT Scan. Discussed w/RAD: CT Scan. Radiology Impression: PATIENT: TIMOTHY MATIAS PRESENT AGE: 42 PATIENT ACCOUNT NO: [id number] : 76 LOCATION: [facility] ORDERING PHYSICIAN: Jeronimo POLLOCK SERVICE DATE: 02/22/18 EXAM TYPE : CAT - CT ABD & PELVIS W IV CONTRAST EXAMINATION: CT ABDOMEN AND PELVIS WITH CONTRAST CLINICAL INFORMATION: Abdominal pain, epigastric. COMPARISON: 2016 TECHNIQUE: Multidetector volumetric imaging was performed of the abdomen and pelvis following IV administration of 95 mL of Optiray 320 intravenous contrast. Sagittal and coronal reformatted images were obtained on the technologist's workstation. DLP: 531 mGy-cm FINDINGS: LUNG BASES: Minimal atelectasis in dependent aspect of each lower lobe. No basilar consolidation or pleural effusion. LIVER, GALLBLADDER, AND BILIARY TREE: The liver has normal size, shape, and attenuation. No focal hepatic lesion. The gallbladder is normal ; no radiopaque gallstones, wall thickening or pericholecystic inflammatory changes. No intrahepatic or extrahepatic bile duct dilatation. PANCREAS: Unremarkable. SPLEEN: Unremarkable. ADRENAL GLANDS: Unremarkable. KIDNEYS AND URETERS: The kidneys have normal size, shape, and attenuation. No hydroureteronephrosis, urolithiasis or perinephric stranding. BLADDER: Unremarkable. BOWEL AND PERITONEUM: Stomach is unremarkable. The small and large bowel are normal in caliber. The appendix is normal. There are a few diverticula of the sigmoid colon without diverticulitis. No evidence of acute inflammation or obstruction along the gastrointestinal tract. No ascites or pneumoperitoneum. ABDOMINAL WALL: Small fat-containing umbilical hernia measures 1.1 cm wide. LYMPH NODES: No pathologic sized lymph nodes in the abdomen or pelvis. No inguinal lymphadenopathy. VASCULAR: Unremarkable. PELVIC: A contraceptive device is positioned within the endometrial cavity of the uterus. Otherwise, uterus and adnexa are unremarkable. No pelvic mass or free fluid. MUSCULOSKELETAL: No acute findings. No aggressive osseous lesions. The visualized lower thoracic and lumbar vertebra have normal height and alignment. There is degenerative disc space narrowing and osteophyte formation at T11-T12. IMPRESSION: - No acute findings within the abdomen or pelvis compared to 2016. - Mild diverticulosis of the sigmoid colon without diverticulitis. DICTATED BY: Elvis Whatley MD DATE/TIME DICTATED:02/22/181439 ACCOUNT INSTALLER:RAY DATE/TIME TRANSCRIBED:02/22/181439 CONFIDENTIAL, DO NOT COPY WITHOUT APPROPRIATE AUTHORIZATION. <Electronically signed in Other Vendor System> SIGNED BY: Elvis Whatley MD 02/22/181448 Initial ED EKG: normal sinus rhythm, rate (72) (Jeronimo Morales) Departure Departure Disposition: HOME OR SELF CARE Condition: Stable Clinical Impression Primary Impression: Abdominal pain Referrals: Latasha Gauthier MD (PCP/Family) Additional Instructions: Take Percocet and omeprazole prescribed. Follow-up with your primary care doctor. Return if any concerns worsening symptoms. Please go over all results of today's visit with your primary care doctor. Contact your primary care doctor to let them know you were here in the emergency room. There may be nonspecific findings which may not be related to your visit today here in the emergency room but may require further evaluation and chronic monitoring by your primary care doctor. If you had a laceration today the chance of foreign body always remains. You should follow-up with your primary care doctor for recheck in 3-5 days for a wound check. If you had an x-ray done there is a chance that a fracture could have been missed on initial read and you should follow-up with your primary care doctor for repeat x-rays if symptoms persist. If your blood pressure was elevated here in the emergency room please have rechecked by [facility] primary care doctor within the next 48. If you were prescribed a narcotic here in the emergency room or any type of controlled substances you're not allowed to drive while taking this medication or operate any type of heavy machinery. Narcotics can make you feel lightheaded dizziness nausea and can cause constipation. You may need to pick and shovel worker a stool softener. Thank you for choosing [facility] emergency room. Please return to the emergency room immediately if you have any other concerns worsening of symptoms. Departure Forms: Customer Survey General Discharge Information Prescriptions: Current Visit Scripts Oxycodone HCl/Acetaminophen (Percocet 5-325 MG Tablet) 1-2 TAB PO BID #10 TAB Omeprazole 1 CAP PO DAILY #30 CAP Comments 02/22/2018 4:34:32 PM Patient clinically looks well. In no apparent distress. Nontoxic-appearing. Patient feels better after IV medications. Peptic ulcer disease versus biliary colic. No acute findings on CT scan. She was referred back to her epic trainer and started on PPI. She has no acute abdomen. No white count. Stable for discharge at this time. Return if any other concerns. It was recommended that she get an outpatient ultrasound of her gallbladder. (Jeronimo Morales) PA/KNITTED GOODS SHAPER Co-Sign Statement Statement: ED Attending supervision documentation- [] I saw and evaluated the patient. I have also reviewed all the pertinent lab results and diagnostic results. I agree with the findings and the plan of care as documented in the PA's/KNITTED GOODS SHAPER's documentation. [X] I have reviewed the ED Record and agree with the PA's/KNITTED GOODS SHAPER's documentation. [] Additions or exceptions (if any) to the PAs/KNITTED GOODS SHAPER's note and plan are summarized below: [] (Michael Leon DO
[2018-02-22 14:47] VITALS: BP 134/70
--- NOTE | 2018-02-22 14:49 | CT SCAN REPORT ---
EXAMINATION: CT ABDOMEN AND PELVIS WITH CONTRAST CLINICAL INFORMATION: Abdominal pain, epigastric. COMPARISON: 06/25/2017 TECHNIQUE: Multidetector volumetric imaging was performed of the abdomen and pelvis following IV administration of 95 mL of Optiray 320 intravenous contrast. Sagittal and coronal reformatted images were obtained on the technologist's workstation. DLP: 531 mGy-cm FINDINGS: LUNG BASES: Minimal atelectasis in dependent aspect of each lower lobe. No basilar consolidation or pleural effusion. LIVER, GALLBLADDER, AND BILIARY TREE: The liver has normal size, shape, and attenuation. No focal hepatic lesion. The gallbladder is normal; no radiopaque gallstones, wall thickening or pericholecystic inflammatory changes. No intrahepatic or extrahepatic bile duct dilatation. PANCREAS: Unremarkable. SPLEEN: Unremarkable. ADRENAL GLANDS: Unremarkable. KIDNEYS AND URETERS: The kidneys have normal size, shape, and attenuation. No hydroureteronephrosis, urolithiasis or perinephric stranding. BLADDER: Unremarkable. BOWEL AND PERITONEUM: Stomach is unremarkable. The small and large bowel are normal in caliber. The appendix is normal. There are a few diverticula of the sigmoid colon without diverticulitis. No evidence of acute inflammation or obstruction along the gastrointestinal tract. No ascites or pneumoperitoneum. ABDOMINAL WALL: Small fat-containing umbilical hernia measures 1.1 cm wide. LYMPH NODES: No pathologic sized lymph nodes in the abdomen or pelvis. No inguinal lymphadenopathy. VASCULAR: Unremarkable. PELVIC: A contraceptive device is positioned within the endometrial cavity of the uterus. Otherwise, uterus and adnexa are unremarkable. No pelvic mass or free fluid. MUSCULOSKELETAL: No acute findings. No aggressive osseous lesions. The visualized lower thoracic and lumbar vertebra have normal height and alignment. There is degenerative disc space narrowing and osteophyte formation at T11-T12. IMPRESSION: - No acute findings within the abdomen or pelvis compared to 06/25/2017. - Mild diverticulosis of the sigmoid colon without diverticulitis.
[2018-02-22] MEDS ORDERED: OMEPRAZOLE40 M1 PO (15:20)
[2018-02-22] MEDS ORDERED: PERCOCET 5-3251 EACH PO (15:20)
== END 2018-02-22 15:31 ==
LOC: ERH 10:18
PROVIDERS: Physician Assistant
DX: R10.13 Epigastric pain (principal); R10.11 Right upper quadrant pain; I10 Essential (primary) hypertension; J45.909 Unspecified asthma, uncomplicated; K21.9 Gastro-esophageal reflux disease without esophagitis; K52.9 Noninfective gastroenteritis and colitis, unspecified
CPT/HCPCS: 74177; 81001; 81025; 93005; 93010; 96374; 96375; 96376; J2405